=== PATIENT | male | born 1985 | race Caucasian/White ===

== ENCOUNTER 2018-06-20 18:42 | Emergency (ER) | payer MEDICAID, SELFPAY ==
[2018-06-20 18:43] VITALS: BP 135/97; PULSE 78; RESP 18; TEMP 36.8; O2SAT 97; BMI 36.8
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
[2018-06-20] MEDS: Ibuprofen 600 MG Tablet PO (19:20)
--- NOTE | 2018-06-20 19:20 | RAD_ITS ---
STUDY: X-RAY - LEFT KNEE REASON FOR EXAM: Male, 33 years old. Pain TECHNIQUE: 4 view(s) of the knee. COMPARISON: None. FINDINGS: Normal visualized distal femur. Normal visualized proximal tibia and fibula. Normal proximal tibiofibular articulation. Normal medial femorotibial compartment. Normal lateral femorotibial compartment. Normal patellofemoral articulation. The soft tissue structures are unremarkable. RAD/Knee 4 or More Views IMPRESSION: Normal x-ray examination of the knee. Electronically Signed: Paul Shelton DO at 19:51 EDT Tel [phone], Service support ,
[2018-06-20 20:01] VITALS: PULSE 82; RESP 18; O2SAT 100
== END 2018-06-20 20:02 | disposition home or self-care (01) ==
PROVIDERS: Emergency Provider Emergency Medicine; Family Provider Family Medicine Geriatric Medicine; PCP Family Medicine Geriatric Medicine
DX: S80.02XA Contusion of left knee, initial encounter (principal); V10.9XXA Unspecified pedal cyclist injured in collision with pedestrian or animal in traffic accident, initial encounter; Y93.9 Activity, unspecified; Y92.9 Unspecified place or not applicable; Y99.9 Unspecified external cause status; Z72.0 Tobacco use; Z79.899 Other long term (current) drug therapy
CPT/HCPCS: 73564; 99285

== ENCOUNTER 2018-09-23 11:09 | Emergency (ER) | payer MEDICAID, SELFPAY ==
[2018-09-23 11:11] VITALS: BP 157/100; PULSE 82; RESP 17; TEMP 36.6; O2SAT 98; BMI 38.0
[2018-09-23 11:16] VITALS: BP 145/85; PULSE 79; RESP 17; TEMP 36.6; O2SAT 98
--- NOTE | 2018-09-23 11:40 | CT_ITS ---
STUDY: CT ABDOMEN AND PELVIS WITHOUT CONTRAST REASON FOR EXAM: Male, 33 years old. Right flank pain RADIATION DOSAGE (If Supplied By Facility): CTDIvol = ( 22.5 ) mGy, DLP = ( 1163.69 ) mGycm TECHNIQUE: Transaxial images were obtained from the dome of the diaphragm to the symphysis pubis without oral contrast, and without intravenous contrast. Sagittal and coronal images were reconstructed. Individualized dose optimization techniques were used for this CT. COMPARISON: 09/17/2015 FINDINGS: The visualized lung bases are unremarkable. The visualized portions of the heart are within normal limits. Normal liver. Normal gallbladder and extrahepatic biliary system. Normal spleen. Normal pancreas. Normal bilateral adrenal glands. Normal right kidney. Normal left kidney. Normal visualized stomach. Normal small intestine. Normal colon. The appendix is visualized and appears normal. Normal abdominal aorta. Normal inferior vena cava. Normal retroperitoneum. Normal urinary bladder. Normal visualized prostate gland. Normal abdominal wall. Normal osseous structures. CT/Abdomen/Pelvis without Cont IMPRESSION: Normal unenhanced CT of the abdomen and pelvis. Electronically Signed: Louis Cantor DO at 13:13 EST Tel , Service support ,
[2018-09-23 12:02] LABS: Bacteria 0 SEEN /hpf (None Seen); Mucous, Urine 0 SEEN /hpf (<or=2+); Red Blood Cells-Urine 0 SEEN /hpf (0-5); Squamous Epithelial Cells - UA 0 SEEN /hpf (0-5); White Blood Cells 0 SEEN /hpf (0-5)
[2018-09-23 12:05] LABS: Absolute Lymphocyte Count 1.74 X10^3/ul (0.83-4.51); Absolute Neutrophil Count 5.2 X10^3/uL (2.0-7.7); Basophil# 0.05 X10^3/uL; Basophil% 0.6 % (0-1); Eosinophil# 0.06 X10^3/uL; Eosinophils% 0.8 % (0-5); Hemoglobin 16.3 g/dl (13.0-16.5); Lymphocyte # 1.74 X10^3/ul (4.0); Lymphocyte % 22.5 % (19-41); Mean Corp Hgb Conc 34.7 g/gl (32-36); Mean Corpuscular Hgb 30.2 pg (27.0-32.0); Mean Corpuscular Volume 87.2 fL (80-94); Mean Platelet Vol. 9.7 fl (6.2-12.0); Monocyte# 0.69 X10^3/uL; Monocyte% 8.9 % (0-10); Neutrophil # 5.17 X10^3/uL (2.7-7.7); Neutrophil % 66.9 % (47-70); Platelet Count 230 K/mm3 (150-450); RBC Distribution Width CV 13.2 % (11.6-14.6); Red Blood Count 5.39 M/mm3 (4.6-6.2); White Blood Count 7.7 K/mm3 (4.4-11.0)
[2018-09-23 12:07] LABS: Color, Urine Yellow (Yellow); Glucose, Dipstick Normal (Normal); Ketone-Dipstick Negative (Negative); Leukocyte Esterase-Dipstick Negative /ul (Negative); Nitrite-Dipstick Negative (Negative); Occult Blood-Urine Negative /ul (Negative); Protein-Dipstick Negative (Negative); Specific Gravity, Urine 1.005 (1.002-1.030); Urine Bilirubin Dipstick Negative (Negative); Urine Clarity Clear (Clear); Urine Urobilinogen Normal (Normal); Urine pH 6.5 (5.0 - 8.0)
[2018-09-23 12:08] LABS: POSITIVE COUNT NO; POSITIVE DIFFERENTIAL NO; POSITIVE MORPHOLOGY NO
[2018-09-23] MEDS: Ketorolac 30 MG/ML Syringe IV (12:08)
[2018-09-23] MEDS: Ondansetron 4 MG/2 ML Vial IV (12:08)
[2018-09-23] MEDS: Morphine 4 MG/ML Syringe IV (12:08)
[2018-09-23] MEDS: 0.9% Normal Saline 1,000 ML 1000 ML IV (12:08)
--- NOTE | 2018-09-23 12:11 | ED.DCSUM_ITS ---
- ER Visit Summary Date of Service: 09/23/18 Chief Complaint: Right flank pain History of Present Illness: The patient is a 33 M with right flank pain that started yesterday. He describes a mild burning sensation with urination. No blood in the urine. No history of injury or prior kidney stone. Physical Examination: Blood pressure is 157/100, otherwise vitals normal. Patient sitting upright in bed no acute distress. Head neck examination is unremarkable. Heart is regular rate and rhythm. Lung sounds are clear. Abdomen is soft with no focal tenderness on exam. Active bowel sounds are noted throughout. Back examination reveals no reducible tenderness. There is no CVA tenderness. Test Results: CBC and chemistry studies unremarkable. Urinalysis normal. CT flank is normal. Emergency Department Course and Treatment: Patient was given Toradol, morphine, Zofran, and IV fluids. On repeat evaluation is resting comfortably. Test results are discussed with him. He either has a pinched nerve with pain radia ting in that dermatome pattern, or possibly a small noncalcified kidney stone. Regardless patient be treated with anti-inflammatories. Treatment Plan: [] Disposition: Discharge Impression: Right flank pain, uncertain etiology This note was generated with [employer] dictation software. It may contain incorrect words, spelling, and punctuation that were not noted in review of the chart prior to signing ED Disposition - Plan for ED Patient: Chief Complaint: Flank Pain Referrals: Franki Freeman Chi, MD [Primary Care Provider] -
[2018-09-23 12:19] LABS: Anion Gap 6 (5-15); BUN 14 mg/dL (7-18); Calcium,Total 8.8 mg/dL (8.5-10.1); Chloride 108 mmol/L (98-107); Creatinine, Serum 0.82 mg/dL (0.70-1.30); EST Glomerular Filtration Rate 113 mL/min (>60); Est Glom Filt Rate - Afr Amer 137 mL/min (>60); Estimated Creatinine Clearance 133.92 ml/min; Glucose 87 mg/dL (74-106); Potassium 3.7 mmol/L (3.5-5.1); Sodium Level 138 mmol/L (136-145)
--- NOTE | 2018-09-23 13:39 | ED.DEP ---
ED Disposition - Plan for ED Patient: Disposition: Home or Assisted Living Chief Complaint: Flank Pain Instructions: ED Flank Pain Uncertain Cause Prescriptions: Naproxen [Naprosyn] 500 mg PO BID PRN PRN #20 tablet PRN Reason: Pain Referrals: Franki Freeman Chi, MD [Primary Care Provider] - 1 Week if not improving
[2018-09-23 13:52] VITALS: BP 139/88; PULSE 72; RESP 18; O2SAT 96
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
== END 2018-09-23 13:54 | disposition home or self-care (01) ==
PROVIDERS: Emergency Provider Emergency Medicine; Family Provider Family Medicine Geriatric Medicine; PCP Family Medicine Geriatric Medicine
DX: R10.9 Unspecified abdominal pain (principal); R30.0 Dysuria; F32.9 Major depressive disorder, single episode, unspecified; F41.9 Anxiety disorder, unspecified; Z79.899 Other long term (current) drug therapy
CPT/HCPCS: 74176; 80048; 81001; 85025; 96361; 96374; 96375; 99285; J7030; A4216; J2405

== ENCOUNTER → 2018-11-01 14:43 | Outpatient (CLI) | payer MEDICAID, SELFPAY ==
[2018-11-01 17:07] LABS: Absolute Lymphocyte Count 2.04 X10^3/ul (0.83-4.51); Absolute Neutrophil Count 4.8 X10^3/uL (2.0-7.7); Basophil# 0.03 X10^3/uL; Basophil% 0.4 % (0-1); Eosinophil# 0.05 X10^3/uL; Eosinophils% 0.7 % (0-5); Hematocrit 48.5 % (40-54); Hemoglobin 16.3 g/dl (13.0-16.5); Lymphocyte # 2.04 X10^3/ul (4.0); Lymphocyte % 26.8 % (19-41); Mean Corp Hgb Conc 33.6 g/gl (32-36); Mean Corpuscular Hgb 30.1 pg (27.0-32.0); Mean Corpuscular Volume 89.6 fL (80-94); Mean Platelet Vol. 10.6 fl (6.2-12.0); Monocyte# 0.63 X10^3/uL; Monocyte% 8.3 % (0-10); Neutrophil # 4.84 X10^3/uL (2.7-7.7); Neutrophil % 63.4 % (47-70); Platelet Count 224 K/mm3 (150-450); RBC Distribution Width CV 13.4 % (11.6-14.6); RBC Distribution Width SD 44.4 fl (35.1-43.9); Red Blood Count 5.41 M/mm3 (4.6-6.2); White Blood Count 7.6 K/mm3 (4.4-11.0)
[2018-11-01 17:08] LABS: POSITIVE COUNT NO; POSITIVE DIFFERENTIAL NO; POSITIVE MORPHOLOGY NO
[2018-11-01 17:46] LABS: ALB/GLOB Ratio 1.1 RATIO (0.9-2.4); AST(SGOT) 28 U/L (15-37); Alanine Aminotransfer ALT/SGPT 58 U/L (16-61); Albumin, Serum 4.3 g/dL (3.2-5.0); Alkaline Phosphatase 102 U/L (45-117); Anion Gap 9 (5-15); BUN 10 mg/dL (7-18); BUN/Creat Ratio 10.2 RATIO (10-20); Calcium,Total 8.7 mg/dL (8.5-10.1); Chloride 104 mmol/L (98-107); Creatinine, Serum 0.98 mg/dL (0.70-1.30); EST Glomerular Filtration Rate 92 mL/min (>60); Est Glom Filt Rate - Afr Amer 111 mL/min (>60); Glucose 86 mg/dL (74-106); Protein, Total 8.3 g/dL (6.4-8.2); Sodium Level 140 mmol/L (136-145); Thyroid Stim Hormone (TSH) 1.68 uIU/mL (0.358-3.74)
== END ==
PROVIDERS: Family Provider Family Medicine Geriatric Medicine; PCP Family Medicine Geriatric Medicine; Visit Provider Family Medicine Geriatric Medicine
DX: R53.83 Other fatigue (principal)
CPT/HCPCS: 36415; 80053; 84443; 85025

== ENCOUNTER 2018-11-24 16:32 | Emergency (ER) | payer MEDICAID, SELFPAY ==
[2018-11-24 16:33] VITALS: BP 154/88; PULSE 102; RESP 16; TEMP 36.7; O2SAT 96; BMI 39.1
--- NOTE | 2018-11-24 16:43 | ED.VIS.GEN ---
History of Present Illness Chief Complaint: Abd Pain Detail of Chief Complaint: Nausea and vomiting Informant: Patient Onset: Today Context: Sudden Onset Timing: Continuous Quality: Central lower abdominal pain with onset at approximately noon Location: Central lower abdominal Current Severity: Mild Maximum Severity: Moderate Worsened by: Patient believes his symptoms are secondary to the fish he ate at 9 AM Relieved by: Nothing Associated Symptoms: Nausea and vomiting x3 Narrative: Patient is a 33-year-old male who presents with central lower abdominal pain that started approximately noon. He had fish at 9 AM. He states his ate the fish. She is not ill. He has not had any diarrhea. He does not feel bloated and denies distention. He states his emesis is clear and colorless. He denies fever, chills night sweats. He denies cardiac respiratory symptoms. He denies urologic symptoms. He complains of mild dry mouth without thirst or orthostatic symptoms. He denies past surgical history. He denies history of hernia. He denies urologic symptoms and denies testicular pain. Prior similar symptoms: No Recent Illness/Hospitalization: No Past Medical History - Allergies and Home Meds Allergies/Adverse Reactions: Allergies No Known Allergies Allergy (Verified 11/24/18 16:33) Primary Care Physician: Franki Freeman Chi, MD [Primary Care Provider] - Prior records reviewed: Yes Surgical History: no surgical history Lives: Spouse/ Significant Other Smoking Status: Current every day smoker Alcohol: None Review of Systems General: Denies: Chills, Fever, Sweats Eyes: Denies: Visual changes - bilaterally, Diplopia ENT: Denies: Rhinorrhea, Sore throat Cardiovascular: Denies: Chest pain, Palpitations Respiratory: Denies: Dyspnea, Cough, Dyspnea on exertion Gastrointestinal: Reports: Abdominal pain, Nausea, Vomiting. Denies: Diarrhea, Constipation, Melena, Hematochezia Genitourinary: Denies: Dysuria, Hematuria, Frequency Musculoskeletal: Denies: Back pain, Extremity Pain Skin: Denies: Rash, Wounds Neurological: Denies: Headache, Weakness, Numbness Hematologic: Denies: Easy bruising, Easy bleeding Physical Exam Vital Signs/Narrative: Vital Signs Temp Pulse Resp BP Pulse Ox 11/24/18 16:33 98.0 F 102 H 16 154/88 H 96 Inital Vital Signs reviewed: Yes - Blood pressure is slightly elevated and heart rate is 102. General: Well nourished, Well developed, Obese, No Acute Distress Head: Normocephalic, Atraumatic Eyes: Perrl, EOMI ENT: Moist mucous membranes, No rhinorrhea Neck: Supple, Nontender Cardiovascular: Regular rate, Regular rhythm, No murmurs, Normal S1, Normal S2 Respiratory: No distress, CTA bilaterally, Chest nontender Abdomen: Soft, No masses, Tender, Hypoactive bowel sounds, - - Maximal tenderness suprapubic region. Slight tympany to percussion. Bowel sounds are diminished. There is no guarding rebound tenderness.. Negative for: Nondistended, Guarding, Rebound tenderness, Hepatomegaly, Splenomegaly, Mass, Pulsatile mass, Ventral hernia, Inguinal hernia, Umbilical hernia Back: Nontender, Normal Inspection Extremities: Nontender, No edema Skin: Normal color, No rash Neurological: Alert, Oriented x3, Cranial nerves II-XII grossly intact, Normal Strength, Normal Sensation Psychological: Normal affect, Normal Mood Diagnostic/Tx/Re-eval - Medical Decision Making Since spouse ate the same patient has no symptoms would not conclude this is food poisoning. Suspect viral illness. Will treat symptomatically with Zofran and Bentyl. No labs were initially ordered. If there is a change in his exam or symptoms in the next 30-60 minutes will add lab work at that time. Patient was reassessed at 1920. He reports improvement. He has had no further nausea and states the pain is better with medication he received in the department. Therefore, will discharge to home ED Disposition - Plan for ED Patient: Disposition: Home or Assisted Living Diagnosis: Abdominal pain with vomiting, Mild dehydration Instructions: ED Nausea Vomiting Prescriptions: Ondansetron [Zofran Odt] 4 mg PO Q8H PRN PRN #5 tab PRN Reason: Nausea Dicyclomine HCl [Bentyl] 20 mg PO TIDAC #10 cap Referrals: Franki Freeman Chi, MD [Primary Care Provider] - 3-5 Days if not improving
[2018-11-24] MEDS: 0.9% Normal Saline 1,000 ML 250 ML IV (16:53)
[2018-11-24] MEDS: Ondansetron 4 MG/2 ML Vial IV (17:00)
[2018-11-24 17:01] VITALS: BP 147/85; PULSE 99; RESP 18; O2SAT 95
[2018-11-24] MEDS: Dicyclomine 10 MG Capsule 20 MG PO (17:32)
[2018-11-24 19:05] VITALS: BP 133/82; PULSE 78; RESP 94
[2018-11-24 19:48] VITALS: BP 132/82; PULSE 89; RESP 16; O2SAT 98
== END 2018-11-24 19:57 | disposition home or self-care (01) ==
PROVIDERS: Emergency Provider Emergency Medicine; Family Provider Family Medicine Geriatric Medicine; PCP Family Medicine Geriatric Medicine
DX: R10.33 Periumbilical pain (principal); R11.2 Nausea with vomiting, unspecified; E86.0 Dehydration; E66.9 Obesity, unspecified; F17.200 Nicotine dependence, unspecified, uncomplicated
CPT/HCPCS: 96361; 96374; 99285; J7030; A4216; J2405

== ENCOUNTER → 2018-11-28 16:48 | Outpatient (CLI) | payer MEDICAID, SELFPAY ==
[2018-11-24 16:33] VITALS: BMI 39.1
== END ==
PROVIDERS: Family Provider Family Medicine Geriatric Medicine; PCP Family Medicine Geriatric Medicine; Referring Provider Family Medicine Geriatric Medicine; Visit Provider Family Medicine Geriatric Medicine
DX: R50.9 Fever, unspecified (principal)
CPT/HCPCS: 87633

== ENCOUNTER → 2019-07-12 10:49 | Outpatient (CLI) | payer MEDICAID, SELFPAY | PROVIDERS: Family Provider Family Medicine Geriatric Medicine; PCP Family Medicine Geriatric Medicine; Referring Provider Family Medicine Geriatric Medicine; Visit Provider Family Medicine Geriatric Medicine | DX: R68.83 Chills (without fever) (principal) | CPT/HCPCS: 87633 ==

== ENCOUNTER → 2019-10-01 13:39 | Outpatient (CLI) | payer MEDICAID, SELFPAY ==
--- NOTE | 2019-10-01 14:05 | RAD_ITS ---
STUDY: X-RAY - ABDOMEN/PELVIS REASON FOR EXAM: Male, 34 years old. abdomen pain, constipation TECHNIQUE: AP supine and upright views of the abdomen and pelvis. COMPARISON: None. FINDINGS: Normal visualized lung bases. There is an unremarkable bowel gas pattern. There is no demonstrated free abdominal air. The visualized liver, spleen and kidneys are grossly normal in size and morphology. Normal soft tissue structures. There are diffuse degenerative changes of the visualized lumbar spine and bilateral hips. RAD/Abd Inc Decub and/or Erect IMPRESSION: Normal x-ray examination of the abdomen and pelvis. Electronically Signed: Silvia Saenz MD at 0:25 EST , Service support ,
[2019-10-01 17:29] LABS: Absolute Lymphocyte Count 1.88 X10^3/uL (0.83-4.51); Absolute Neutrophil Count 5.4 X10^3/uL (2.0-7.7); Basophil# 0.05 X10^3/uL; Basophil% 0.6 % (0-1); Eosinophil# 0.06 X10^3/uL; Eosinophils% 0.7 % (0-5); Hematocrit 53.1 % (40-54); Hemoglobin 17.6 g/dL (13.0-16.5); Lymphocyte # 1.88 X10^3/ul (4.0); Lymphocyte % 23.1 % (19-41); Mean Corp Hgb Conc 33.1 g/dL (32-36); Mean Corpuscular Hgb 29.8 pg (27.0-32.0); Mean Platelet Vol. 10.5 fl (6.2-12.0); Monocyte# 0.68 X10^3/uL; Monocyte% 8.4 % (0-10); NRBC Flagged by Analyzer 0 % (0-5); Neutrophil # 5.42 X10^3/uL (2.7-7.7); Neutrophil % 66.7 % (47-70); Platelet Count 233 K/mm3 (150-450); RBC Distribution Width CV 12.7 % (11.6-14.6); White Blood Count 8.1 K/mm3 (4.4-11.0)
[2019-10-01 17:47] LABS: ALB/GLOB Ratio 1.2 RATIO (0.9-2.4); AST(SGOT) 26 U/L (15-37); Alanine Aminotransfer ALT/SGPT 51 U/L (16-61); Albumin, Serum 4.6 g/dL (3.2-5.0); Alkaline Phosphatase 106 U/L (45-117); Anion Gap 7 (5-15); BUN 9 mg/dL (7-18); BUN/Creat Ratio 8.4 RATIO (10-20); Calcium,Total 9.2 mg/dL (8.5-10.1); Chloride 105 mmol/L (98-107); Creatinine, Serum 1.07 mg/dL (0.70-1.30); EST Glomerular Filtration Rate 83 mL/min (>60); Est Glom Filt Rate - Afr Amer 100 mL/min (>60); Glucose 83 mg/dL (74-106); Potassium 3.8 mmol/L (3.5-5.1); Protein, Total 8.6 g/dL (6.4-8.2); Sodium Level 137 mmol/L (136-145)
== END ==
PROVIDERS: PCP Family Medicine Geriatric Medicine; Referring Provider Family Medicine Geriatric Medicine; Visit Provider Family Medicine Geriatric Medicine
DX: R10.9 Unspecified abdominal pain (principal)
CPT/HCPCS: 36415; 74019; 80053; 85025

== ENCOUNTER → 2019-11-14 10:20 | Outpatient (CLI) | payer MEDICAID, SELFPAY ==
[2019-11-14 18:10] LABS: Absolute Lymphocyte Count 1.98 X10^3/uL (0.83-4.51); Absolute Neutrophil Count 5.6 X10^3/uL (2.0-7.7); Basophil# 0.06 X10^3/uL; Basophil% 0.7 % (0-1); Eosinophil# 0.08 X10^3/uL; Hematocrit 51.7 % (40-54); Hemoglobin 16.7 g/dL (13.0-16.5); Lymphocyte # 1.98 X10^3/ul (4.0); Lymphocyte % 23.6 % (19-41); Mean Corp Hgb Conc 32.3 g/dL (32-36); Mean Corpuscular Hgb 29.1 pg (27.0-32.0); Mean Corpuscular Volume 90.2 fL (80-94); Mean Platelet Vol. 10.5 fl (6.2-12.0); Monocyte# 0.59 X10^3/uL; NRBC Flagged by Analyzer 0 % (0-5); Neutrophil # 5.62 X10^3/uL (2.7-7.7); Platelet Count 251 K/mm3 (150-450); RBC Distribution Width CV 13.2 % (11.6-14.6); RBC Distribution Width SD 43.6 fl (35.1-43.9); Red Blood Count 5.73 M/mm3 (4.6-6.2); White Blood Count 8.4 K/mm3 (4.4-11.0)
[2019-11-14 18:18] LABS: AST(SGOT) 24 U/L (15-37); Alanine Aminotransfer ALT/SGPT 48 U/L (16-61); Alkaline Phosphatase 102 U/L (45-117); Anion Gap 4 (5-15); BUN 12 mg/dL (7-18); BUN/Creat Ratio 11.8 RATIO (10-20); Calcium,Total 8.6 mg/dL (8.5-10.1); Chloride 106 mmol/L (98-107); Creatinine, Serum 1.02 mg/dL (0.70-1.30); EST Glomerular Filtration Rate 88 mL/min (>60); Est Glom Filt Rate - Afr Amer 106 mL/min (>60); Glucose 100 mg/dL (74-106); Potassium 3.6 mmol/L (3.5-5.1); Sodium Level 138 mmol/L (136-145); Thyroid Stim Hormone (TSH) 2.44 uIU/mL (0.358-3.74)
== END ==
PROVIDERS: PCP Family Medicine Geriatric Medicine; Visit Provider Family Medicine Geriatric Medicine
DX: R53.83 Other fatigue (principal)
CPT/HCPCS: 36415; 80053; 84443; 85025

== ENCOUNTER → 2021-01-14 11:52 | Outpatient (CLI) | payer MEDICAID, SELFPAY ==
[2021-01-14 12:26] LABS: Absolute Lymphocyte Count 2.21 X10^3/uL (0.83-4.51); Absolute Neutrophil Count 5.8 X10^3/uL (2.0-7.7); Basophil# 0.06 X10^3/uL; Basophil% 0.7 % (0-1); Eosinophil# 0.06 X10^3/uL; Eosinophils% 0.7 % (0-5); Hematocrit 53.6 % (40-54); Hemoglobin 17.4 g/dL (13.0-16.5); Lymphocyte # 2.21 X10^3/ul (0.83-4.51); Lymphocyte % 25.3 % (19-41); Mean Corp Hgb Conc 32.5 g/dL (32-36); Mean Corpuscular Hgb 28.8 pg (27.0-32.0); Mean Corpuscular Volume 88.7 fL (80-94); Mean Platelet Vol. 10.1 fl (6.2-12.0); Monocyte# 0.54 X10^3/uL; Monocyte% 6.2 % (0-10); NRBC Flagged by Analyzer 0 % (0-5); Neutrophil # 5.83 X10^3/uL (2.7-7.7); Neutrophil % 66.6 % (47-70); Platelet Count 287 K/mm3 (150-450); RBC Distribution Width SD 42.4 fl (35.1-43.9); Red Blood Count 6.04 M/mm3 (4.6-6.2); White Blood Count 8.7 K/mm3 (4.4-11.0)
[2021-01-14 13:10] LABS: AST(SGOT) 27 U/L (15-37); Alanine Aminotransfer ALT/SGPT 65 U/L (16-61); Albumin, Serum 4.3 g/dL (3.2-5.0); Alkaline Phosphatase 119 U/L (45-117); Anion Gap 6 (5-15); BUN 14 mg/dL (7-18); BUN/Creat Ratio 14.2 RATIO (10-20); Calcium,Total 9.3 mg/dL (8.5-10.1); Chloride 107 mmol/L (98-107); Creatinine, Serum 0.99 mg/dL (0.70-1.30); EST Glomerular Filtration Rate 90 mL/min (>60); Est Glom Filt Rate - Afr Amer 109 mL/min (>60); Globulin 4.3 g/dL (2.2-4.2); Glucose 127 mg/dL (74-106); Potassium 4.1 mmol/L (3.5-5.1); Protein, Total 8.6 g/dL (6.4-8.2); Sodium Level 138 mmol/L (136-145); Thyroid Stim Hormone (TSH) 3.23 uIU/mL (0.358-3.74)
[2021-01-14 17:41] LABS: Hemoglobin A1c 5.1 % (3.8-5.6)
[2021-01-16 12:08] LABS: HEPATITIS B SURFACE AG Negative (Negative); Hepatitis A AB, Total Negative (Negative); Hepatitis A IgM Antibody Negative (Negative); Hepatitis B Core AB IgM Negative (Negative); Hepatitis B Core Ab Total Negative (Negative); Hepatitis C Ab <0.1 s/co ratio (0.0-0.9)
[2021-01-16 13:57] LABS: Hep B Surface Antibodies Non Reactive (.)
== END ==
PROVIDERS: PCP Family Medicine Geriatric Medicine; Visit Provider Family Medicine Geriatric Medicine
DX: I10 Essential (primary) hypertension (principal); R79.9 Abnormal finding of blood chemistry, unspecified
CPT/HCPCS: 36415; 80053; 83036; 84443; 85025; 86704; 86705; 86706; 86708; 86709; 86803; 87340

== ENCOUNTER → 2021-01-23 09:03 | Outpatient (CLI) | payer MEDICAID, SELFPAY ==
--- NOTE | 2021-01-23 09:12 | US_ITS ---
STUDY: ABDOMINAL ULTRASOUND - RIGHT UPPER QUADRANT REASON FOR VISIT: Male, 35 years old abnormal LFTs TECHNIQUE: Ultrasound evaluation of the right upper quadrant was performed with real-time and static lyons-scale imaging. TECHNICAL QUALITY: Adequate. COMPARISON: None. FINDINGS: Liver: The liver measures 17.3 cm. There is increased echogenicity consistent with fatty infiltration. The bile ducts are within normal limits. There is hepatic color flow. The direction of portal flow is hepatopetal. There is no demonstrated mass lesion. Gallbladder: Normal distended gallbladder. The gallbladder wall measures 3 mm. There is a negative sonographic Montgomery''s sign. There is no pericholecystic fluid. There are no gallstones. Common Bile Duct (C.B.D.): The common bile duct measures 4 mm. Pancreas: Normal size of the head, body and tail of the pancreas. There is increased echogenicity of the pancreas. There is no demonstrated pancreatic mass or cyst. Right Kidney: Normal size of the right kidney. The right kidney measures 12.9 x 5.8 x 6.3 cm. Normal renal cortex. The right cortex measures 1.6 cm. There is no demonstrated renal mass or cyst. There is no right hydronephrosis. US/Abdomen Limited IMPRESSION: Diffuse fatty infiltration of the liver, no discrete lesion Nonspecific echogenic pancreas Electronically Signed: Dionte Rudd MD at 10:47 EDT , Service support ,
== END ==
PROVIDERS: PCP Family Medicine Geriatric Medicine; Referring Provider Family Medicine Geriatric Medicine; Visit Provider Family Medicine Geriatric Medicine
DX: R74.8 Abnormal levels of other serum enzymes (principal)
CPT/HCPCS: 76705

== ENCOUNTER 2021-02-09 15:19 | Emergency (ER) | payer MEDICAID, SELFPAY ==
[2021-02-09 15:20] VITALS: BP 167/94; PULSE 98; RESP 15; TEMP 36.7; O2SAT 97; BMI 41.3
--- NOTE | 2021-02-09 15:32 | EX.ED.UPPERE ---
HPI History of Present Illness Chief Complaint: Upper Extremity Injury Informant: patient and parent Onset/Context/Timing Onset: Hours Context: Sudden Onset Timing: Continuous Quality of Pain: Throbbing Current Severity: Mild Maximum Severity: Moderate Worsened by: Use of right hand Relieved by: Nothing Associated Symptoms Associated Symptoms: Negative for Parasthesia and Weakness Narrative Narrative: Patient is a 35-year-old wyfgg-[id number]-uzgylbkp male who hit the wall anger. His last tetanus shot was greater than 10 years ago. He denies paresthesia, anesthesia motor weakness. He reports pain with use of his hand. He has no other complaints. Tetanus Immunization: >10 years Prior similar symptoms: No Recent Illness/Hospitalization: No PFSH PFS Medical History (Updated 02/09/21 @ 16:[address] Carlos Boland MD) Depression Home Medications citalopram 10 mg PO DAILY 02/09/21 [History Last Taken Unknown] primidone 150 mg PO QHS 02/09/21 [History Last Taken Unknown] Allergy/AdvReac Type Severity Reaction Status Date / Time No Known Allergies Allergy Verified 02/09/21 15:21 Social History (Updated 02/09/21 @ 15:[address] Carlos Boland MD) household members: family Smoking Status: Current every day smoker tobacco type: cigarettes substance use type: does not use ROS ROS ED Musculoskeletal Musculoskeletal: Denies back pain, myalgias or neck pain Integumentary Reports Abrasions; Denies abscess or rash Neurologic Neurologic: Denies paresthesias or weakness Hematologic/Lymphatic Hematologic/Lymphatic: Denies easy bleeding or easy bruising EXAM Physical Exam Const Vital Signs: 02/09/21 15:20 Temperature 98.1 F Temperature Source Temporal Pulse Rate 98 Respiratory Rate 15 Blood Pressure 167/94 H Blood Pressure Mean 118 Pulse Ox 97 Oxygen Delivery Method Room Air Positive well nourished, well developed and obese General Appearance ED: well developed and NAD Nutritional Appearance: obese HEENT normocephalic and atraumatic Eyes PERRL and EOMs intact bilaterally Neck full ROM and supple Chest Wall inspection of chest normal Resp normal respiratory effort Cardio regular rate and regular rhythm Extremity Negative for normal to inspection Extremity Narrative: There is abrasions noted over the second third and fourth MCP joint. There is no rotational malalignment. There is pain palpation over the proximal phalanx of the index long and ring finger as well as over the second, third and fourth metacarpal. Right Upper Extremity: hand and digits Neuro oriented x3 and CN's II-XII intact bilaterally Neuro Narrative: Median, radial and ulnar function intact. Sensorium / Orientation: alert Motor Exam: strength 5/5 throughout Psych mental status grossly normal Skin Lesions: no lesions Rashes: no rashes Trauma: abrasion MDM MDM MDM Narrative Medical decision making narrative: Extremities obtained to rule out fracture and tetanus was updated. Radiography Diagnostic Testing: Three-view x-ray of the right hand is negative for fracture, subluxation, dislocation or foreign body. Discharge Plan Triage Chief Complaint: Upper Extremity Injury ED Provider: Carlos Boland Dx/Rx/DC Orders Clinical Impression: Contusion of right hand, initial encounter Instructions: ED Abrasion, ED Hand Contusion Prescriptions: No Action primidone 50 mg tablet 150 mg PO QHS RF: 0 citalopram 10 mg tablet 10 mg PO DAILY RF: 0 Primary Care Provider: Franki Freeman Chi Referrals: Franki Freeman Chi, MD [Primary Care Provider] - 1 Week Disposition Disposition: Home, self care
--- NOTE | 2021-02-09 15:40 | RAD_ITS ---
HISTORY: Trauma, injury, Pain EXAMINATION/TECHNIQUE: XR Hand Min 3 Views: COMPARISON: None FINDINGS: BONES/JOINTS: No acute fracture or dislocation. Preservation of the joint spaces. No sclerotic or destructive changes observed. SOFT TISSUES: No soft tissue swelling or gas. No radiopaque foreign body. RAD/Hand Min 3 Views IMPRESSION: No acute bony abnormality. at 1604 Reported and signed by: Galen Heath MD Electronically Signed: Galen Heath MD at 16:03 EDT Tel , Service support ,
[2021-02-09] MEDS: Diphth,Pertuss(Acell),Tet Vac 0.5 ML Vial IM (16:05)
[2021-02-09 16:32] VITALS: RESP 18
--- NOTE | 2021-02-09 16:33 | ED.RN ---
PT OBSERVED FOR SHOT TIME GREATER THAN 15 MINUTES NO REACTION NOTED BY THIS RN. PT D/C.
== END 2021-02-09 16:38 | disposition home or self-care (01) ==
PROVIDERS: Emergency Provider Emergency Medicine; PCP Family Medicine Geriatric Medicine
DX: S60.221A Contusion of right hand, initial encounter (principal); E66.9 Obesity, unspecified; F17.210 Nicotine dependence, cigarettes, uncomplicated; F32.9 Major depressive disorder, single episode, unspecified; W22.01XA Walked into wall, initial encounter; Z79.899 Other long term (current) drug therapy
CPT/HCPCS: 73130; 90471; 90715; 99282

== ENCOUNTER 2021-02-21 12:52 | Emergency (ER) | payer MEDICAID, SELFPAY ==
[2021-02-21 12:55] VITALS: BP 168/101; PULSE 98; RESP 21; TEMP 37.1; O2SAT 97; BMI 42.1
--- NOTE | 2021-02-21 12:58 | EKG12_ITS ---
Test Reason : SYNCOPE Blood Pressure : / mmHG Vent. Rate : 097 BPM Atrial Rate : 097 BPM P-R Int : 150 ms QRS Dur : 092 ms QT Int : 328 ms P-R-T Axes : 060 -23 033 degrees QTc Int : 416 ms Normal sinus rhythm Normal ECG Confirmed by CHRISTIANO ORTEGA, CHAVA ([id number]), industrial editor TREVOR PRIETO ([id number]) on 02/23/2021 10:41:22 A M Referred By: DOMINIC Confirmed By:JEAN-PAUL ALVARADO MD
[2021-02-21 13:08] VITALS: BP 168/101; PULSE 105; RESP 18; O2SAT 97
--- NOTE | 2021-02-21 13:09 | EDS_ITS ---
HPI History of Present Illness Chief Complaint: Syncope Narrative Narrative: Patient presents complaining of GI upset after initiating Depakote therapy for anger management, he has been on Depakote 500 mg twice daily for 3 days to start medication he feels if he has stomach upset he took a Depakote tablet shortly thereafter he feels as if he has to vomit, today took a Depakote tablet and then 1 hour later vomited felt as if he passed out he was brought to the hospital, he has no history of VT PE or DVT he has no abdominal pain bowel bladder habits unremarkable he has no complaints otherwise he has no history of syncope heart disease he has behavioral health disorder and fatty liver that stable, he was given a 90-day supply in 2 separate bottles he states he is taking only the amount prescribed he is not taking extra he has no complaints at this time [facility] Medical History Depression Fatty liver Smoker Home Medications citalopram 10 mg PO DAILY 02/09/21 [History Last Taken Unknown] primidone 150 mg PO QHS 02/09/21 [History Last Taken Unknown] Allergy/AdvReac Type Severity Reaction Status Date / Time No Known Allergies Allergy Verified 02/09/21 15:21 Social History (Updated 02/09/21 @ 15:[address] Carlos Boland MD) household members: family Smoking Status: Current every day smoker tobacco type: cigarettes substance use type: does not use ROS ROS ED ROS Narrative Vomiting with Depakote therapy initiation near syncope Constitutional Constitutional ED: Reports subjective, sweats and other; Denies chills, fever(s) or weight loss Eyes Eyes: Denies blurry vision or change in vision ENT ENT ED: Denies ear pain Cardiovascular Cardiovascular: Denies chest pain or palpitations Respiratory/Chest Respiratory/Chest: Denies dyspnea Gastrointestinal Gastrointestinal: Denies abdominal pain, nausea or vomiting Genitourinary Genitourinary ED: Denies dysuria or hematuria Musculoskeletal Musculoskeletal: Denies arthralgias or myalgias Integumentary Reports rash; Denies abscess Neurologic Neurologic: Denies weakness Psychiatric Psychiatric: Denies anxiety or depression Endocrine Endocrinology: Denies polydipsia or polyuria Allergic/Immunologic Allergic/Immunologic ED: Denies urticaria EXAM Physical Exam Narrative Exam Narrative: His vital signs are unremarkable he is awake and alert he has no complaints head neck chest unremarkable abdomen soft nontender neurologically normal NIH 0 Const Vital Signs: 02/21/21 12:55 02/21/21 13:08 Temperature 98.8 F Temperature Source Oral Pulse Rate 98 105 H Respiratory Rate 21 H 18 Respiratory Effort Normal Respiratory Pattern Normal Blood Pressure 168/101 H 168/101 H Blood Pressure Mean 123 123 Pulse Ox 97 97 Oxygen Delivery Method Room Air Room Air Positive well developed General Appearance ED: well developed HEENT Reports normocephalic Negative for trauma Eyes EOMs intact bilaterally Neck supple Chest Wall inspection of chest normal Resp normal respiratory effort Cardio regular rate GI non-tender and non-distended Back/Spine Back/Spine Narrative: unremarkable Extremity normal to inspection Neuro oriented x3 and CN's II-XII intact bilaterally Sensorium / Orientation: alert Psych mental status grossly normal Skin no rashes or lesions noted MDM MDM MDM Narrative Medical decision making narrative: His EKG shows a sinus rhythm rate of 97 no acute injury nothing acute clinically looks well his family is in the room with him they confirm that since starting the Depakote he has had a sense of nausea and vomiting he is not taking extra Depakote given all the above 80 screen evaluation observation Patient's ED screening evaluation is generally unremarkable see all those reports, at this time given that this appears to be persistent stated by new onset Depakote for anger management causing him to have stomach upset will have him stop that medication seen a bland diet follow-up with his outpatient providers there is nothing to suggest seizure stroke VT rating life-threatening discussed with the patient discussed inpatient versus outpatient management he is comfortable with discharge home and will return for change in symptoms Home stable Final impression GI upset related to Depakote use, near syncope Lab Data Labs: Laboratory Results - last 24 hr 02/21/21 02/21/21 02/21/21 13:10 13:10 13:10 WBC 8.7 RBC 5.96 Hgb 17.7 H Hct 52.8 MCV 88.6 MCH 29.7 MCHC 33.5 RDW Std Deviation 41.8 RDW Coeff of Eleonora 12.8 Plt Count 294 MPV 9.6 Immature Gran % (Auto) 0.600 Neut % (Auto) 70.8 H Lymph % (Auto) 19.8 [place] % (Auto) 6.9 Eos % (Auto) 1.1 Baso % (Auto) 0.8 Absolute Neuts (auto) 6.2 Absolute Lymphs (auto) 1.72 Nucleated RBC % 0 Sodium 137 Potassium 3.8 Chloride 104 Carbon Dioxide 24.0 Anion Gap 9 BUN 13 Creatinine 1.12 Estim Creat Clear Calc 96.18 Est GFR (MDRD) Af Amer 94 Est GFR (MDRD) Non-Af 78 BUN/Creatinine Ratio 11.6 Glucose 120 H Calcium 9.1 Total Bilirubin 0.40 AST 22 ALT 56 Alkaline Phosphatase 125 H Troponin I < 0.015 B-Natriuretic Peptide 2.3 Total Protein 8.4 H Albumin 4.2 Globulin 4.2 Albumin/Globulin Ratio 1.0 Lipase 61 L Discharge Plan Triage Chief Complaint: Syncope ED Provider: Luis Hanley Dx/Rx/DC Orders Clinical Impression: Near syncope Instructions: ED Fainting, Vagal Reaction, ED Fainting, Uncertain Cause, ED Dizziness Syncope Fainting W Pre Prescriptions: No Action primidone 50 mg tablet 150 mg PO QHS RF: 0 citalopram 10 mg tablet 10 mg PO DAILY RF: 0 Primary Care Provider: Franki Freeman Chi Referrals: Franki Freeman Chi, MD [Primary Care Provider] - Activity Restrictions/Additional Instructions: Stop the Depakote standard bland diet return for change in symptoms
[2021-02-21 13:17] LABS: Absolute Lymphocyte Count 1.72 X10^3/uL (0.83-4.51); Absolute Neutrophil Count 6.2 X10^3/uL (2.0-7.7); Basophil# 0.07 X10^3/uL; Basophil% 0.8 % (0-1); Eosinophils% 1.1 % (0-5); Hematocrit 52.8 % (40-54); Hemoglobin 17.7 g/dL (13.0-16.5); Lymphocyte # 1.72 X10^3/ul (0.83-4.51); Lymphocyte % 19.8 % (19-41); Mean Corp Hgb Conc 33.5 g/dL (32-36); Mean Corpuscular Hgb 29.7 pg (27.0-32.0); Mean Corpuscular Volume 88.6 fL (80-94); Mean Platelet Vol. 9.6 fl (6.2-12.0); Monocyte% 6.9 % (0-10); NRBC Flagged by Analyzer 0 % (0-5); Neutrophil # 6.16 X10^3/uL (2.7-7.7); Neutrophil % 70.8 % (47-70); Platelet Count 294 K/mm3 (150-450); RBC Distribution Width CV 12.8 % (11.6-14.6); RBC Distribution Width SD 41.8 fl (35.1-43.9); Red Blood Count 5.96 M/mm3 (4.6-6.2); White Blood Count 8.7 K/mm3 (4.4-11.0)
[2021-02-21 13:35] LABS: AST(SGOT) 22 U/L (15-37); Alanine Aminotransfer ALT/SGPT 56 U/L (16-61); Albumin, Serum 4.2 g/dL (3.2-5.0); Alkaline Phosphatase 125 U/L (45-117); Anion Gap 9 (5-15); BUN 13 mg/dL (7-18); BUN/Creat Ratio 11.6 RATIO (10-20); Calcium,Total 9.1 mg/dL (8.5-10.1); Chloride 104 mmol/L (98-107); Creatinine, Serum 1.12 mg/dL (0.70-1.30); EST Glomerular Filtration Rate 78 mL/min (>60); Est Glom Filt Rate - Afr Amer 94 mL/min (>60); Estimated Creatinine Clearance 96.18 ml/min; Globulin 4.2 g/dL (2.2-4.2); Glucose 120 mg/dL (74-106); Lipase 61 U/L (73-393); Potassium 3.8 mmol/L (3.5-5.1); Protein, Total 8.4 g/dL (6.4-8.2); Sodium Level 137 mmol/L (136-145)
[2021-02-21 13:36] LABS: BNP,B-Type NATRIURETIC PEPTIDE 2.3 pg/mL (0-100)
[2021-02-21 14:16] LABS: Valproic Acid (Depakene) Level 54 ug/mL (50-100)
[2021-02-21 14:30] VITALS: BP 137/88; PULSE 77; RESP 19; O2SAT 96
== END 2021-02-21 14:31 | disposition home or self-care (01) ==
PROVIDERS: Emergency Provider Emergency Medicine; PCP Family Medicine Geriatric Medicine
DX: R55 Syncope and collapse (principal); F17.210 Nicotine dependence, cigarettes, uncomplicated
CPT/HCPCS: 80053; 80164; 83690; 83880; 84484; 85025; 93005; 99285; J7040; A4216

== ENCOUNTER → 2021-03-10 08:26 | Outpatient (CLI) | payer MEDICAID, SELFPAY ==
[2021-02-21 12:55] VITALS: BMI 42.1
--- NOTE | 2021-03-10 08:32 | US_ITS ---
STUDY: ABDOMINAL ULTRASOUND - ELASTOGRAPHY REASON FOR VISIT: Male, 36 years old. Fatty infiltration of the liver. TECHNIQUE: Liver stiffness measurements were obtained on a [employer] RS 85 ultrasound machine using a CA 1-7 probe following the SRU guidelines. 3 measurements were obtained using a 2-D-SWE method. The IQR/M was 17% suggesting a quality data set. TECHNICAL QUALITY: Adequate. COMPARISON: Comparison is made with prior examination dated 01/24/2020. FINDINGS: Liver: There is fatty infiltration of the liver. Median liver stiffness measured kPa. US/Elastography Parenchyma/Organ IMPRESSION: Liver stiffness measures 6.3 kPa compatible with F2 Metavir score. Electronically Signed: Roge Alvarado MD at 11:07 EDT , Service support ,
== END ==
PROVIDERS: PCP Family Medicine Geriatric Medicine; Referring Provider Family Medicine Geriatric Medicine; Visit Provider Family Medicine Geriatric Medicine
DX: K76.0 Fatty (change of) liver, not elsewhere classified (principal)
CPT/HCPCS: 76981

== ENCOUNTER 2021-06-10 08:36 | Emergency (ER) | payer MEDICAID, SELFPAY ==
[2021-06-10 08:39] VITALS: BP 139/93; PULSE 113; RESP 14; TEMP 37.1; O2SAT 97; BMI 31.3
--- NOTE | 2021-06-10 09:10 | EDS_ITS ---
HPI History of Present Illness Chief Complaint: Laceration Informant: patient Occured/Mechanism Comment: Cut with broken mirror Onset/Context/Timing Current Severity: Mild Maximum Severity: Mild Narrative Narrative: Patient presents with laceration to the right lower vaz. Patient states a mirror broke and cut his leg. Last tetanus update was a couple months ago. [facility] History Depression Fatty liver Smoker Home Medications citalopram 10 mg PO DAILY 02/09/21 [History Last Taken Unknown] primidone 150 mg PO QHS 02/09/21 [History Last Taken Unknown] Allergy/AdvReac Type Severity Reaction Status Date / Time No Known Allergies Allergy Verified 06/10/21 08:38 Social History household members: family Smoking Status: Current every day smoker tobacco type: cigarettes substance use type: does not use ROS ROS ED Constitutional Constitutional ED: Denies chills or fever(s) Eyes Eyes: Denies change in vision ENT ENT ED: Denies sore throat Cardiovascular Cardiovascular: Denies chest pain Respiratory/Chest Respiratory/Chest: Denies cough or dyspnea Gastrointestinal Gastrointestinal: Denies abdominal pain, diarrhea, nausea or vomiting Musculoskeletal Musculoskeletal: Denies back pain Integumentary Reports other Details: Right lower leg laceration ; Denies rash Neurologic Neurologic: Denies headache(s) or weakness Psychiatric Psychiatric: Denies anxiety or depression Allergic/Immunologic Allergic/Immunologic ED: Denies urticaria EXAM Physical Exam Const Vital Signs: 06/10/21 08:39 Temperature 98.8 F Temperature Source Temporal Pulse Rate 113 H Respiratory Rate 14 Blood Pressure 139/93 H Blood Pressure Mean 108 Pulse Ox 97 Oxygen Delivery Method Room Air Positive well nourished and well developed General Appearance ED: well developed HEENT Reports normocephalic and head/scalp atraumatic Eyes PERRL and EOMs intact bilaterally Neck supple Chest Wall inspection of chest normal and palpation of chest normal Resp normal respiratory effort and clear to auscultation bilaterally Cardio regular rate and regular rhythm GI normal to inspection, nondistended, normoactive bowel sounds Palpation: soft Extremity Extremity Narrative: 6 cm laceration to the right anterior lateral lower vaz. Bleeding well controlled. Strong distal pulses with full range of motion. Neuro oriented x3 and no sensory deficits noted Sensorium / Orientation: alert Motor Exam: strength 5/5 throughout Psych mental status grossly normal Skin Skin Narrative: Laceration as above. MDM MDM Treatment and Re-Evaluation Comments:: Wound is anesthetized and sutured. Please see procedure note. Wound is cleansed and dressed and wound care instructions are provided. Patient is to have sutures out in 10 days. Procedures Lacerations Right lower extremity laceration: Length: 2.36 in Depth: Sub Q Shape: Linear Prep: Shure-Clens Laceration repair: Irrigated, Lidocaine (5 cc 1% lidocaine) and Local Number of Sutures/Emilia: 7 Suture Information: Vicryl, Simple and 4-0 Discharge Plan Triage Chief Complaint: Laceration ED Provider: Lesly Jones Dx/Rx/DC Orders Clinical Impression: Laceration of right lower leg Instructions: ED Laceration: All Closures Prescriptions: No Action primidone 50 mg tablet 150 mg PO QHS RF: 0 citalopram 10 mg tablet 10 mg PO DAILY RF: 0 Primary Care Provider: Franki Freeman Chi Referrals: rFanki Freeman Chi, MD [Primary Care Provider] - 10-14 Days suture removal Disposition Disposition: Home, Self Care
== END 2021-06-10 09:50 | disposition home or self-care (01) ==
PROVIDERS: Emergency Provider Emergency Medicine; PCP Family Medicine Geriatric Medicine
DX: S81.811A Laceration without foreign body, right lower leg, initial encounter (principal); W25.XXXA Contact with sharp glass, initial encounter; Y93.9 Activity, unspecified; Y92.9 Unspecified place or not applicable; Y99.9 Unspecified external cause status; F32.A Depression, unspecified; F17.210 Nicotine dependence, cigarettes, uncomplicated; Z79.899 Other long term (current) drug therapy
CPT/HCPCS: 12002; 99285

== ENCOUNTER 2022-08-11 14:31 | Emergency (ER) | payer MEDICAID, SELFPAY ==
[2022-08-11 14:32] VITALS: BP 145/88; PULSE 81; RESP 18; TEMP 36.6; O2SAT 100; BMI 29.2
--- NOTE | 2022-08-11 14:34 | ED.RN ---
UPON ARRIVAL, PT TOLD THIS RN THAT HE WAS HAVING PAIN IN HIS RIGHT SHOULDER AND WAS HOLDING IT. BY THE END OF TRIAGE, PT STATES IT IS HIS LEFT SHOULDER AND NOW IS HOLDING HIS LEFT SHOULDER. PT STATING IT IS HIS LEFT SHOULDER AND GIRLFRIEND WROTE IT WRONG ON TRIAGE PAPER
--- NOTE | 2022-08-11 16:29 | EX.ED.UPPERE ---
HPI History of Present Illness Chief Complaint: Upper Extremity Injury Informant: patient Narrative Narrative: [id number] male presents for evaluation of left shoulder pain worsened today. 2 weeks ago mechanical fall while walking [place] Doing fine yesterday states he felt to popping sensations with movement. Took Tylenol this morning. Denied any deformities at that time or any subluxations. Pain worse with overhead movements. No history of similar. History of fatty liver couple years ago. Denies history of gastric ulcers or kidney injury. Prior similar symptoms: No PFSH PFSH Medical History Depression Fatty liver Smoker Home Medications citalopram 10 mg tablet 10 mg PO DAILY 02/09/21 [History Last Taken Unknown] primidone 50 mg tablet 150 mg PO QHS 02/09/21 [History Last Taken Unknown] ibuprofen 600 mg tablet 600 mg PO 4X/DAY PRN Pain Or Fever #20 tabs 08/11/22 [Rx Last Taken Unknown] Allergy/AdvReac Type Severity Reaction Status Date / Time No Known Allergies Allergy Verified 08/11/22 15:52 Social History household members: family Smoking Status: Current every day smoker tobacco type: cigarettes substance use type: does not use ROS ROS ED Constitutional Constitutional ED: Denies chills, fever(s) or sweats Eyes Eyes: Denies change in vision ENT ENT ED: Denies dysphagia or sore throat Cardiovascular Cardiovascular: Denies chest pain, leg edema, palpitations or racing heartbeat Respiratory/Chest Respiratory/Chest: Denies cough, dyspnea or dyspnea on exertion Gastrointestinal Gastrointestinal: Denies abdominal pain, diarrhea, nausea or vomiting Genitourinary Genitourinary ED: Denies dysuria, hematuria or urinary frequency Musculoskeletal Musculoskeletal: Reports extremity pain and other Details: Left shoulder pain ; Denies back pain or neck pain Integumentary Denies rash or wounds Neurologic Neurologic: Denies headache(s), paresthesias or weakness EXAM Physical Exam Const Vital Signs: 08/11/22 14:32 Temperature 98 F Temperature Source Temporal Pulse Rate 81 Respiratory Rate 18 Blood Pressure 145/88 H Blood Pressure Mean 107 Pulse Ox 100 Oxygen Delivery Method Room Air Positive well nourished and well developed General Appearance ED: well developed and NAD HEENT Reports moist mucous membranes normocephalic and atraumatic Eyes PERRL, EOMs intact bilaterally and conjunctivae normal General Eye ED: Yes normal appearance of both eyes Neck no lymphadenopathy and supple General: Negative for tenderness Chest Wall Chest: Negative for tenderness Resp normal respiratory effort and normal air movement Effort and Inspection: symmetric chest movement; Negative for respiratory distress Cardio regular rate, regular rhythm and no murmurs Peripheral Pulses: pulses 2+ throughout GI normal to inspection, nondistended, normoactive bowel sounds and non-tender Palpation: Negative for guarding or rebound tenderness present Back/Spine no CVA tenderness and no thoracic nor lumbar tenderness Extremity Extremity Narrative: Left upper extremity: No clavicular pain. No deformities of the shoulder. Positive empty can. Positive pain with external rotation against resistance. No elbow pain. Skin intact. Neuro vas intact distally. General Extremety ED: Negative for edema or tenderness General Extremity: Negative for edema Neuro oriented x3 and no sensory deficits noted Sensorium / Orientation: awake and alert Skin no rashes or lesions noted and no wounds MDM MDM MDM Narrative Medical decision making narrative: Patient exam concerns for rotator cuff strain, history no clear subluxations or dislocations. X-ray 4 views left shoulder reviewed by myself and read by radiology shows no acute process. He started on ibuprofen. He will continue this. Discussed not using sling to avoid frozen shoulders. Discussed continued movement with minimal overhead use. He is given follow-up with orthopedics as an outpatient. All questions were answered. Discharge Plan Triage Chief Complaint: Upper Extremity Injury ED Provider: Nakul Dyer Dx/Rx/DC Orders Clinical Impression: Left shoulder strain, Rotator cuff (capsule) sprain Instructions: ED Shoulder Sprain Prescriptions: New ibuprofen 600 mg tablet 600 mg PO 4X/DAY PRN (Reason: Pain Or Fever) Qty: 20 0RF No Action primidone 50 mg tablet 150 mg PO QHS Label Comments: TAKE 3 TABLETS BY MOUTH ONCE DAILY AT BEDTIME citalopram 10 mg tablet 10 mg PO DAILY Label Comments: TAKE 1 TABLET BY MOUTH ONCE DAILY Primary Care Provider: Franki Freeman Chi Referrals: Tono Travis DO [Med Staff - Active Staff] - 1 Week if not improving Franki Freeman Chi, MD [Primary Care Provider] - Activity Restrictions/Additional Instructions: X-ray negative. Exam concerns for rotator cuff strain and injury. Take medication as prescribed. Follow-up as an outpatient. Disposition Disposition: Home, Self Care Discharge Date/Time: 08/11/22 17:43
[2022-08-11] MEDS: Ibuprofen 600 MG Tablet PO (16:33)
--- NOTE | 2022-08-11 17:04 | RAD_ITS ---
STUDY: X-RAY - LEFT SHOULDER REASON FOR EXAM: Male, 37 years old. Left shoulder pain TECHNIQUE: 4 view(s) of the shoulder. COMPARISON: None. FINDINGS: Normal glenohumeral articulation. Normal acromioclavicular joint. Normal acromion. There is no demonstrated inferior acromial spur. Normal humeral head and visualized proximal humerus. The soft tissue structures are unremarkable. There is no demonstrated fracture. Normal visualized pulmonary apex. RAD/Shoulder min 2 Views IMPRESSION: Normal x-ray examination of the shoulder. Electronically Signed: Dinh Lazo MD at 17:18 EST ,
[2022-08-11 17:39] VITALS: RESP 18
== END 2022-08-11 17:43 | disposition home or self-care (01) ==
PROVIDERS: Emergency Provider Emergency Medicine; PCP Family Medicine Geriatric Medicine; Visit Provider Emergency Medicine
DX: S43.422A Sprain of left rotator cuff capsule, initial encounter (principal); F17.210 Nicotine dependence, cigarettes, uncomplicated; W01.198A Fall on same level from slipping, tripping and stumbling with subsequent striking against other object, initial encounter
CPT/HCPCS: 73030; 99283

== ENCOUNTER → 2022-11-03 | Outpatient (CLI) | payer MEDICAID, SELFPAY ==
[2022-11-03 13:30] LABS: ALB/GLOB Ratio 1.2 RATIO (0.9-2.4); AST(SGOT) 20 U/L (15-37); Alanine Aminotransfer ALT/SGPT 30 U/L (16-61); Albumin, Serum 4.3 g/dL (3.2-5.0); Alkaline Phosphatase 105 U/L (45-117); Anion Gap 7 (5-15); BUN 13 mg/dL (7-18); BUN/Creat Ratio 12.7 RATIO (10-20); Calcium,Total 9.5 mg/dL (8.5-10.1); Chloride 107 mmol/L (98-107); Creatinine, Serum 1.02 mg/dL (0.70-1.30); EST Glomerular Filtration Rate 86 mL/min (>60); Est Glom Filt Rate - Afr Amer 104 mL/min (>60); Globulin 3.7 g/dL (2.2-4.2); Glucose 83 mg/dL (74-106); Potassium 4.1 mmol/L (3.5-5.1); Sodium Level 142 mmol/L (136-145); Thyroid Stim Hormone (TSH) 1.67 uIU/mL (0.358-3.74)
[2022-11-03 16:23] LABS: Absolute Lymphocyte Count 1.93 X10^3/uL (0.83-4.51); Absolute Neutrophil Count 5.2 X10^3/uL (2.0-7.7); Basophil# 0.05 X10^3/uL; Basophil% 0.6 % (0-1); Eosinophil# 0.08 X10^3/uL; Hematocrit 51.9 % (40-54); Hemoglobin 17.7 g/dL (13.0-16.5); Lymphocyte # 1.93 X10^3/ul (0.83-4.51); Lymphocyte % 23.7 % (19-41); Mean Corp Hgb Conc 34.1 g/dL (32-36); Mean Corpuscular Hgb 30.9 pg (27.0-32.0); Mean Corpuscular Volume 90.6 fL (80-94); Monocyte% 9.8 % (0-10); NRBC Flagged by Analyzer 0.9 % (0-5); Neutrophil # 5.21 X10^3/uL (2.7-7.7); Neutrophil % 64.2 % (47-70); Platelet Count 235 K/mm3 (150-450); RBC Distribution Width SD 43.1 fl (35.1-43.9); Red Blood Count 5.73 M/mm3 (4.6-6.2); White Blood Count 8.1 K/mm3 (4.4-11.0)
== END | disposition home or self-care (01) ==
LOC: POLAB3 10:31
PROVIDERS: PCP Family Medicine Geriatric Medicine; Visit Provider Family Medicine Geriatric Medicine
DX: R53.83 Other fatigue (principal)
CPT/HCPCS: 36415; 80053; 84443; 85025

== ENCOUNTER → 2023-05-04 | Outpatient (CLI) | payer MEDICAID, SELFPAY ==
[2023-05-04 17:42] LABS: Absolute Lymphocyte Count 2.37 X10^3/uL (0.83-4.51); Absolute Neutrophil Count 6.9 X10^3/uL (2.0-7.7); Basophil# 0.07 X10^3/uL; Basophil% 0.7 % (0-1); Eosinophil# 0.05 X10^3/uL; Eosinophils% 0.5 % (0-5); Hematocrit 47.3 % (40-54); Hemoglobin 15.7 g/dL (13.0-16.5); Lymphocyte # 2.37 X10^3/ul (0.83-4.51); Lymphocyte % 23.1 % (19-41); Mean Corp Hgb Conc 33.2 g/dL (32-36); Mean Corpuscular Hgb 30.4 pg (27.0-32.0); Mean Corpuscular Volume 91.5 fL (80-94); Mean Platelet Vol. 10.2 fl (6.2-12.0); Monocyte# 0.78 X10^3/uL; Monocyte% 7.6 % (0-10); NRBC Flagged by Analyzer 0 % (0-5); Neutrophil # 6.93 X10^3/uL (2.7-7.7); Neutrophil % 67.7 % (47-70); Platelet Count 232 K/mm3 (150-450); RBC Distribution Width CV 12.9 % (11.6-14.6); RBC Distribution Width SD 43.5 fl (35.1-43.9); Red Blood Count 5.17 M/mm3 (4.6-6.2); White Blood Count 10.2 K/mm3 (4.4-11.0)
[2023-05-04 18:32] LABS: ALB/GLOB Ratio 1.2 RATIO (0.9-2.4); AST(SGOT) 27 U/L (15-37); Alanine Aminotransfer ALT/SGPT 39 U/L (16-61); Albumin, Serum 4.1 g/dL (3.2-5.0); Alkaline Phosphatase 90 U/L (45-117); Anion Gap 7 (5-15); BUN 16 mg/dL (7-18); Calcium,Total 8.8 mg/dL (8.5-10.1); Chloride 111 mmol/L (98-107); Cholesterol 140 mg/dL (200); EST Glomerular Filtration Rate 88 mL/min (>60); Est Glom Filt Rate - Afr Amer 107 mL/min (>60); Globulin 3.5 g/dL (2.2-4.2); Glucose 77 mg/dL (74-106); High Density Lipoprotein 56 mg/dL; Potassium 3.9 mmol/L (3.5-5.1); Protein, Total 7.6 g/dL (6.4-8.2); Sodium Level 141 mmol/L (136-145); Thyroid Stim Hormone (TSH) 1.15 uIU/mL (0.358-3.74); Triglycerides 38 mg/dL; Very Low Density Lipoprotein 8 mg/dL (5-40)
== END | disposition home or self-care (01) ==
LOC: POLAB3 16:26
PROVIDERS: PCP Family Medicine Geriatric Medicine; Visit Provider Family Medicine Geriatric Medicine
DX: R53.83 Other fatigue (principal)
CPT/HCPCS: 36415; 80053; 80061; 84443; 85025

== ENCOUNTER → 2023-06-06 | Outpatient (CLI) | payer MEDICAID, SELFPAY ==
--- NOTE | 2023-06-06 13:40 | RAD_ITS ---
STUDY: X-RAY - RIGHT WRIST REASON FOR EXAM: Male, 38 years old. Right wrist pain. TECHNIQUE: 3 views of the right wrist were obtained. COMPARISON: None. FINDINGS: Normal visualized distal radius and ulna. Normal radiocarpal articulation. Normal distal radioulnar articulation. Normal carpal bones. Normal carpal articulations. Normal carpometacarpal articulation of the thumb. Normal second through fifth carpometacarpal articulations. Normal visualized metacarpal bones. The soft tissue structures are unremarkable. There is no demonstrated acute fracture. RAD/Wrist min 3 Views IMPRESSION: Normal x-ray examination of the right wrist. Electronically Signed: Tyrese Bacon MD at 8:19 EDT ,
== END | disposition home or self-care (01) ==
LOC: RAD 13:35
PROVIDERS: PCP Family Medicine Geriatric Medicine; Referring Provider Family Medicine Geriatric Medicine; Visit Provider Family Medicine Geriatric Medicine
DX: M25.531 Pain in right wrist (principal)
CPT/HCPCS: 73110

== ENCOUNTER 2023-09-04 02:59 | Emergency (ER) | payer MEDICAID, SELFPAY ==
[2023-09-04 03:00] VITALS: BP 135/86; PULSE 71; RESP 16; TEMP 36.4; O2SAT 99; BMI 32.1
--- NOTE | 2023-09-04 03:05 | EDS_ITS ---
HPI History of Present Illness Chief Complaint: Abd Pain [facility] Medical History Depression Fatty liver Smoker Home Medications citalopram 10 mg tablet 10 mg PO DAILY 02/09/21 [History Last Taken Unknown] Allergy/AdvReac Type Severity Reaction Status Date / Time No Known Allergies Allergy Verified 09/04/23 06:04 Social History household members: family Smoking Status: Current every day smoker tobacco type: cigarettes substance use type: does not use EXAM Physical Exam Const Vital Signs: 09/04/23 03:00 09/04/23 06:05 09/04/23 06:08 Temperature 97.5 F L Temperature Source Oral Pulse Rate 71 56 L 56 L Respiratory Rate 16 16 16 Blood Pressure 135/86 H 120/77 120/77 Blood Pressure Mean 102 91 91 Pulse Ox 99 98 98 Oxygen Delivery Method Room Air Room Air MDM MDM MDM Narrative Medical decision making narrative: HISTORY OF PRESENT ILLNESS: 38-year-old male here with abdominal pain. Notes nausea vomiting. Notes starte d 2 hours ago. REVIEW OF SYSTEMS: Pertinent positives: Abdominal pain, nausea vomiting Pertinent negatives: Chest pain, shortness of breath, urinary complaints, flank pain PHYSICAL EXAM: Nursing triage notes reviewed, Vital signs reviewed Constitutional: please see mdm HENT: MMM Eyes: Pupils equal round and reactive to light, Extraocular muscles intact Neck: No stridor, no JVD, full neck ROM Lungs: Clear to auscultation, No wheezing or rales. No increased work of breathing, no conversational dyspnea, no accessory muscle use, no nasal flaring. No respiratory distress noted Heart: Regular rate and rhythm, No murmurs, No rubs and No gallops, 2+ distal pulses (radial, femoral, posterior tibial) in all extremities Abdomen: Soft, there mild lower abdominal TTP, no rigidity, rebound or guarding, no obvious peritoneal signs, no palpable pulsatile abdominal masses, no auscultated abdominal bruit. Negative montgomery sign. : No CVAT Extremities: No edema Neuro: No focal neurological deficits, cranial nerves II through XII intact, 5/5 strength in all extremities. Intact sensation to light touch in all extremities, 2+ reflexes bilateral patella tendons. Normal gait. No ataxia. Skin: No rash or lesions noted, no jaundice. MEDICAL DECISION MAKING: Chief Complaint: Abdominal pain External records reviewed: Imaging reviewed: CT scan from 2019 shows no acute process Factors affecting care: none MDM Narrative: Patient was hemodynamically stable, afebrile, nontoxic-appearing. Abdominal exam I considered the following differential diagnosis: AAA, small bowel obstruction, abdominal perforation, appendicitis, pancreatitis, hepatobiliary pathology (acute cholecystitis), mesenteric ischemia, pathology (ie nephrolithiasis, pyelonephritis). ALL IMAGES (IF OBTAINED) HAVE BEEN PERSONALLY REVIEWED AND INTERPRETED BY MYSELF. BMP without evidence of significant electrolyte abnormalities, no anion gap, no acute kidney injury. CBC without leukocytosis, severe anemia, no thrombocytopenia. LFTs show no evidence of hepatobiliary pathology. Lipase is wnl indicating no pancreatic inflammation. CT scan abdomen pelvis shows no evidence of acute lower abdominal pathology. The patients CT scan does show concern for acute cholecystitis however patient has no upper quadrant tenderness negative Montgomery sign is no signs of hepatobiliary structure on labs. Repeat abdominal exam remained benign. No RUQ TTP. I have a very low suspicion for acute cholecystitis. So low in fact I think the patient is appropriate to be discharged and follow-up with his primary care physician for an outpatient ultrasound. I discussed this finding with the patient I offered further testing and/or admission and/or surgery consultation. The patient was alert and orient x 3 and had capacity to make his own medical decision and chose to forego further ED evaluation, ultrasound imaging or surgery consultation at this time and lieu of being discharged with instructions to take Tylenol and ibuprofen and follow with his primary care physician. He did promise return if symptoms change or worsen. The patient and/or family, caregivers express understanding. The patient and/or family, caregivers agrees with the plan. Shared decision making: I will have a discussion with the patient and or visitors regarding risk/benefits of further testing or admission. They will be made aware of of the risk/benefits inherent in this decision they will be given the opportunity to voice understanding. Total critical care time today provided was at least 0 minutes. This excludes separately billable procedures. Critical care time (if documented) is secondary to the patient having high probability of clinically significant/life threatening deterioration in the patient's condition which required my urgent intervention. Impression: 1. Lower abdominal pain 2. Gallstones Dispo: Discharge Lab Data Attestation: I reviewed the patient's lab results. Labs: Laboratory Results - last 24 hr 09/04/23 03:15 WBC 7.0 RBC 5.17 Hgb 15.6 Hct 46.7 MCV 90.3 MCH 30.2 MCHC 33.4 RDW Std Deviation 41.8 RDW Coeff of Eleonora 12.7 Plt Count 218 MPV 9.6 Immature Gran % (Auto) 0.400 Neut % (Auto) 51.4 Lymph % (Auto) 36.5 [place] % (Auto) 8.7 Eos % (Auto) 2.0 Baso % (Auto) 1.0 Absolute Neuts (auto) 3.6 Absolute Lymphs (auto) 2.55 Nucleated RBC % 0 Sodium 145 Potassium 3.8 Chloride 114 H Carbon Dioxide 27.0 Anion Gap 4 L BUN 15 Creatinine 1.07 Estim Creat Clear Calc 97.74 Est GFR (MDRD) Af Amer 98 Est GFR (MDRD) Non-Af 81 BUN/Creatinine Ratio 14.0 Glucose 92 Calcium 8.6 Total Bilirubin 0.20 Direct Bilirubin 0.06 AST 17 ALT 25 Alkaline Phosphatase 82 Total Protein 7.0 Albumin 3.8 Globulin 3.2 Lipase 31 Radiography Diagnostic Testing: Clinical Impression(s) from Imaging Studies Abdomen/Pelvis CT 09/04/23 03:11 IMPRESSION: Distended gallbladder with cholelithiasis, prominent cystic duct, and trace adjacent stranding. Recommend gallbladder ultrasound to further evaluate for cholecystitis. Normal appendix. No bowel obstruction or other acute finding. Electronically Signed: Reed De La Garza MD at 4:52 EST Reading Location ID and State: [address] [place] [address] Tel , Service support , Discharge Plan Triage Chief Complaint: Abd Pain ED Provider: Saurav Roca Dx/Rx/DC Orders Instructions: ED Abdominal Pain Unkn Cause Male... Prescriptions: No Action citalopram 10 mg tablet 10 mg PO DAILY Patient Comments: TAKE 1 TABLET BY MOUTH ONCE DAILY Primary Care Provider: Franki Freeman Chi Referrals: Franki Freeman Chi, MD [Primary Care Provider] - Activity Restrictions/Additional Instructions: Thank you for trusting us with your care today! Please take Tylenol (2 pills, 650 mg), ibuprofen (2 pills, 400 mg) every 6 hours as needed for pain and fever control. Please return to the emergency department if your symptoms change or worsen. There were abnormalities found on your CT scan that were concerning for health issues with your gallbladder. Please follow with your primary care physician to get an outpatient testing such as an ultrasound to further characterize this abnormality. Please follow with your primary care physician for further outpatient evaluation and management. Disposition Disposition: Home, Self Care Discharge Date/Time: 09/04/23 06:09
--- NOTE | 2023-09-04 03:11 | CT_ITS ---
INDICATION: Lower abdominal pain EXAMINATION: CT ABDOMEN AND PELVIS WITH CONTRAST - CT Abdomen And Pelvis W/ Contrast Injection TECHNIQUE: Helically acquired images were obtained of the abdomen and pelvis following IV contrast. A radiation dose optimization technique was used for this scan. IV Contrast dosage and agent: 100 mL Isovue-370 Oral contrast: None. CTDI 0.98. DLP 1051.34 COMPARISON: September 23, 2018. FINDINGS: LOWER CHEST: Lung bases are clear. No cardiomegaly or pericardial effusion. LIVER: Homogeneous. No focal mass. GALLBLADDER AND BILIARY TREE: Distended gallbladder with cholelithiasis and trace adjacent stranding. Prominent tortuous proximal cystic duct. . No intra- or extrahepatic biliary ductal dilation. PANCREAS: No focal cystic or solid mass. SPLEEN: Normal size without focal cystic or solid mass. ADRENAL GLANDS: No nodules. KIDNEYS AND URETERS: Normal renal size and position. No hydronephrosis. PERITONEUM: No ascites or free air. No other fluid collection. BOWEL: No evidence of acute appendicitis. No stomach or bowel distension. No focal inflammatory change. LYMPH NODES: No enlarged mesenteric or retroperitoneal lymph nodes. VESSELS: Aorta is non-dilated. URINARY BLADDER: Unremarkable. REPRODUCTIVE ORGANS: No pelvic masses. ABDOMINAL WALL: No discrete abdominal or pelvic wall hernia. BONES: No lytic or blastic abnormality. CT/Abdomen/Pelvis W IV Cont ONLY IMPRESSION: Distended gallbladder with cholelithiasis, prominent cystic duct, and trace adjacent stranding. Recommend gallbladder ultrasound to further evaluate for cholecystitis. Normal appendix. No bowel obstruction or other acute finding. Electronically Signed: Reed De La Garza MD at 4:52 EST ,
[2023-09-04 03:24] LABS: Absolute Lymphocyte Count 2.55 X10^3/uL (0.83-4.51); Absolute Neutrophil Count 3.6 X10^3/uL (2.0-7.7); Basophil# 0.07 X10^3/uL; Eosinophil# 0.14 X10^3/uL; Hematocrit 46.7 % (40-54); Hemoglobin 15.6 g/dL (13.0-16.5); Lymphocyte # 2.55 X10^3/ul (0.83-4.51); Lymphocyte % 36.5 % (19-41); Mean Corp Hgb Conc 33.4 g/dL (32-36); Mean Corpuscular Hgb 30.2 pg (27.0-32.0); Mean Corpuscular Volume 90.3 fL (80-94); Mean Platelet Vol. 9.6 fl (6.2-12.0); Monocyte# 0.61 X10^3/uL; Monocyte% 8.7 % (0-10); NRBC Flagged by Analyzer 0 % (0-5); Neutrophil # 3.58 X10^3/uL (2.7-7.7); Neutrophil % 51.4 % (47-70); Platelet Count 218 K/mm3 (150-450); RBC Distribution Width CV 12.7 % (11.6-14.6); RBC Distribution Width SD 41.8 fl (35.1-43.9); Red Blood Count 5.17 M/mm3 (4.6-6.2)
[2023-09-04] MEDS: 0.9% Normal Saline (1000mL) 1,000 ML 1000 ML IV (03:29)
[2023-09-04] MEDS: Ondansetron 4 MG/2 ML Vial IV (03:31)
[2023-09-04] MEDS: Ketorolac 15 MG/ML Vial IV (03:31)
[2023-09-04 03:41] LABS: AST(SGOT) 17 U/L (15-37); Alanine Aminotransfer ALT/SGPT 25 U/L (16-61); Albumin, Serum 3.8 g/dL (3.2-5.0); Alkaline Phosphatase 82 U/L (45-117); Anion Gap 4 (5-15); BUN 15 mg/dL (7-18); Bilirubin, Direct 0.06 mg/dL (0.00-0.30); Calcium,Total 8.6 mg/dL (8.5-10.1); Chloride 114 mmol/L (98-107); Creatinine, Serum 1.07 mg/dL (0.70-1.30); EST Glomerular Filtration Rate 81 mL/min (>60); Est Glom Filt Rate - Afr Amer 98 mL/min (>60); Estimated Creatinine Clearance 97.74 ml/min; Globulin 3.2 g/dL (2.2-4.2); Glucose 92 mg/dL (74-106); Lipase 31 U/L (13-75); Potassium 3.8 mmol/L (3.5-5.1); Sodium Level 145 mmol/L (136-145)
--- OUTSIDE RECORDS SUMMARY | 2023-09-04 03:55 | XMS RPT_ITS | CCD ---
Author Name Unknown Address [address] [place] [address] Organization [facility] Care Team Providers Care Salvage Grinder Name Role Phone Franki Freeman [facility] Primary Care Provider FRANKI FREEMAN [facility] Primary Care Unavailable TIFFANY ZAVALA Referring Unavailable FRANKI FREEMAN [facility] Primary Care Unavailable Medications Completed/Discontinued Medications Medication Drug Class(es) Dates Sig (Normalized) Sig (Original) escitalopram 10 mg oral tablet (1 source) Serotonin Reuptake Inhibitor Start: 05-04-2023 escitalopram oxalate (LEXAPRO) 10 mg tablet varenicline (1 source) Partial Cholinergic Nicotinic Agonist Start: 05-04-2023 varenicline (CHANTIX) 0.5 mg (11)- 1 mg (42) tablet Problems Problem Classification Problem Date Documented Da te Episodic/Chronic Other connective tissue disease (1 source) Pain in right hand; Translations: [Pain in right hand] 05-14-2023 Episodic Other connective tissue disease (1 source) Pain in right hand; Translations: [Right hand pain] Onset: 05-14-2023 Episodic Other non-traumatic joint disorders (1 source) Pain in wrist; Translations: [Pain in right wrist] 05-14-2023 Episodic Other non-traumatic joint disorders (1 source) Pain in right wrist; Translations: [Acute pain of right wrist] Onset: 05-14-2023 Episodic Results Test Name Value Interpretation Reference Range Facil ity Vital Signs Date Time Vital Sign Value Performing Clinician Facadarsh esteban 05-14-2023 10:55-0400 Body temperature 96.69 [degF] Tiffany Zavala BUSINESS JOB TITLES.GENERAL MAINTENANCE ENGINEER Work Phone: [facility] 05-14-2023 10:55-0400 Body weight 106.87 kg Tiffany Zavala BUSINESS JOB TITLES.GENERAL MAINTENANCE ENGINEER Work Phone: [facility] 05-14-2023 10:55-0400 Diastolic blood pressure 88 mm[Hg] Tiffany Garnica-Torin BUSINESS JOB TITLES.GENERAL MAINTENANCE ENGINEER Work Phone: [facility] 05-14-2023 10:55-0400 Heart rate 73 /min Tiffany Garnica-Torin BUSINESS JOB TITLES.GENERAL MAINTENANCE ENGINEER Work Phone: [facility] 05-14-2023 10:55-0400 Respiratory rate 20 /min Tiffany Zavala BUSINESS JOB TITLES.GENERAL MAINTENANCE ENGINEER Work Phone: [facility] 05-14-2023 10:55-0400 SaO2% (BldA) [Mass fraction] 98 % Tiffany Zavala BUSINESS JOB TITLES.GENERAL MAINTENANCE ENGINEER Work Phone: [facility] 05-14-2023 10:55-0400 Systolic blood pressure 128 mm[Hg] Tiffany Zavala BUSINESS JOB TITLES.GENERAL MAINTENANCE ENGINEER Work Phone: [facility] Encounters Encounter Date Encounter Type Care Provider Facility Start: 05-14-2023 End: 05-14-2023 ambulatory FRANKI CHI BINA Facility:[facility] Start: 05-14-2023 End: 05-14-2023 Patient encounter procedure Tiffany Zavala APRN.GENERAL MAINTENANCE ENGINEER Work Phone: [facility] Plan of Treatment Date Care Activity Detail Author Start: 05-06-2023 Influenza vaccination INFLUENZA (#1) [facility] Start: 09-05-2022 DEPRESSION ASSESSMENT DEPRESSION ASS ESSMENT [facility] Start: 03-11-2021 COVID-19 VACCINE (2 - Booster for Francia series) COVID-19 VACCINE (2 - Booster for Francia series) [facility] Start: 2018 LIPID SCREEN LIPID SCREEN [facility] Start: 2002 Urine microalbumin profile DTAP,TDAP,TD (1 - Tdap) [facility] Start: 2001 HEPATITIS C SCREENING HEPATITIS C SC REENING [facility] Start: 2001 HIV SCREENING HIV SCREENING [facility] Start: 1989 PNEUMOCOCCAL (1 - PCV) PNEUMOCOCCAL (1 - PCV) [facility] Start: 1983 HEPATITIS B (1 of 3 - 3-dose series) HEPATITIS B (1 of 3 - 3-dose series) [facility] Payers Date Payer Category Payer Medicaid [employer] [facility] MEDICAID [id number] 2022-Present [phone] [address] [place] [address] Medicaid [id number] 2022 Medicaid [id number] Social History Date Type Detail Facility Start: 05-14-2023 Tobacco smoking stat [facility] Smokes tobacco daily [facility] History of tobacco use Cigarette Smoker C [facility] History of tobacco use Passive smoker [facility] Start: 05-14-2023 Tobacco use and exposure Smoke less tobacco non-user [facility] Start: 05-14-2023 History of Social function [facility] Start: 05-14-2023 Tobacco use panel [facility] Start: 1983 Sex Assigned At Not on file C [facility] Progress note 05-14-2023 Note Date & Type Note Facility 05-14-2023 Note HNO ID: [id number] Author: Jane Campoverde RT(R) Service: Radiology Author Type: Technologist Type: Progress Notes Filed: 05/14/2023 11:24 AM Note Text: Radiology Service Progress Note PATIENT NAME: Alan Bell DATE OF SERVICE: May 14, 2023 TIME: 11:12 AM PATIENT IDENTITY VERIFICATION COMPLETED USING TWO (2) IDENTIFIERS: Name and Date of confirmed by patient verbally. FALL SCREENING: Has the patient had 2 falls in the last year or 1 fall with injury or currently using an Ambulatory Assistive Device (Walker, Cane, Wheelchair, Crutches, etc.)? No PATIENT GENDER DATA: Male PATIENT RELEVANT IMPLANT DATA REVIEWED: Yes RADIOLOGY DEPARTMENT: General X-ray: Exam(s) Completed: Upper Extremity X-Ray(s): Wrist, right and Hand, right PERIPHERAL IV DATA: Not applicable SIGNED BY: LETICIA Wong) May 14, 2023 11:12 AM [facility] Progress note 05-14-2023 Note Date & Type Note Facility 05-14-2023 Note HNO ID: [id number] Author: Tiffany Zavala APRN.GENERAL MAINTENANCE ENGINEER Service: ? Author Type: Nurse Practitioner Type: Progress Notes Filed: 05/14/2023 11:47 AM Note Text: Subjective Trauma Pertinent negatives include no chills, fever or rash. Alan Bell is a 38 year old male who presents with right wrist and hand pain. He was twisted something forcefully at work and had pain occur, and it has persisted since. He state the pain shoots into his arm when he bends his wrist a certain way, and he has had some swelling of his thumb and second finger. Review of Systems Constitutional: Negative for chills and fever. Musculoskeletal: Positive for joint pain. Negative for falls. See HPI Skin: Negative for itching and rash. BP 128/88 Pulse 73 Temp (!) 35.9 ?C (96.7 ?F) Resp 20 Wt 106.9 kg (235 lb 9.6 oz) SpO2 98% No past medical history on file. No past surgical history on file. ALLERGIES Patient has no allergy information on record. MEDICATIONS varenicline (CHANTIX) 0.5 mg (11)- 1 mg (42) tablet escitalopram oxalate (LEXAPRO) 10 mg tablet No family history on file. Social History Tobacco Use Smoking status: Every Day Types: Cigarettes Passive exposure: Current Smokeless tobacco: Never Objective Physical Exam Vitals and nursing note reviewed. Constitutional: Appearance: Normal appearance. Musculoskeletal: General: Tenderness present. No swelling or deformity. Hands: Skin: General: Skin is warm and dry. Findings: No bruising, erythema or rash. Neurological: Mental Status: He is alert. ASSESSMENT/PLAN: 1. Right hand pain - ICD9: 729.5, ICD10: M79.641 (primary diagnosis) - XR HAND GENERAL 3V PA/LAT/OBL RIGHT 2. Acute pain of right wrist - ICD9: 719.43, ICD10: M25.531 - XR WRIST GENERAL 3V PA/LAT/OBL RIGHT Radiologist RESULT: No fracture. Joint spaces are maintained. Bony mineralization is normal. No erosions or other significant abnormality. IMPRESSION: No acute osseous abnormality. Propulsion Machinery Service Engineer: YUNI Transcribe Date/Time: May 14 2023 11:25A Dictated by : MAGDALENO GENTILE DO - suspect sprain. - wrist splint applied to right wrist. Patient state splint is comfortable. Wear this for one week. RICE therapy as directed. May take ibuprofen/tylenol for pain. - Follow-up with your PCP in 3-5 days if symptoms have not improved or sooner if symptoms worsen - Discussed red flags and need for immediate medical evaluation if any occur. - Discussed supportive care treatment with fluids, rest and analgesia. - Discussed expected course of illness Tiffany Zavala APRN.CNP [facility] Instructions 05-14-2023 Patient Instructions Note Date & Type Note Facility 05-14-2023 Instructions Tiffany Zavala APRN.GENERAL MAINTENANCE ENGINEER - 05/14/2023 11:47 AM EDT ASSESSMENT/PLAN: 1. Right hand pain - ICD9: 729.5, ICD10: M79.641 (primary diagnosis) - XR HAND GENERAL 3V PA/LAT/OBL RIGHT 2. Acute pain of right wrist - ICD9: 719.43, ICD10: M25.531 - XR WRIST GENERAL 3V PA/LAT/OBL RIGHT Radiologist RESULT: No fracture. Joint spaces are maintained. Bony mineralization is normal. No erosions or other significant abnormality. IMPRESSION: No acute osseous abnormality. Propulsion Machinery Service Engineer: YUNI Transcribe Date/Time: May 14 2023 11:25A Dictated by : MAGDALENO GENTILE DO - suspect sprain. - wrist splint applied to right wrist. Patient state splint is comfortable. Wear this for one week. RICE therapy as directed. May take ibuprofen/tylenol for pain. - Follow-up with your PCP in 3-5 days if symptoms have not improved or sooner if symptoms worsen - Discussed red flags and need for immediate medical evaluation if any occur. - Discussed supportive care treatment with fluids, rest and analgesia. - Discussed expected course of illness Tiffany Zavala APRN.WILLIE Sprains of the Ankle, Knee and Wrist What is a sprain? A sprain occurs when a ligament (a band of tissue that connects two or more bones at a joint) is stretched and/or torn. During a sprain, one or more ligaments may be injured. The severity of the sprain depends on the number of ligaments injured and the extent of the injury (whether there is a partial or complete tear). What causes a sprain? A sprain is caused by either direct or indirect trauma that knocks the joint out of position and overstretches, sometimes rupturing the supporting ligaments. Examples of trauma include rolling of the ankle, a fall or a blow to the body. Where do sprains occur? Sprains occur in both the upper and lower parts of the body. However, the three most common sprain sites are the ankle, knee and wrist. Ankle sprain-- typically occurs when the foot turns inward as a person runs, turns or lands on the ankle after a jump. Knee sprain-- typically occurs after a blow to the knee or a fall. Sudden twisting of the knee may result in a sprain. Wrist sprain --typically occurs when one falls and lands on an outstretched hand. Who is at risk for sprains? Both professional and amateur athletes-- as well as the general public--can sustain this type of injury. However, those who have a history of sprains, are overweight and are in poor physical condition have increased risk. What are the signs and symptoms of sprains? Signs and symptoms may vary due to severity of injury. They may include: Pain Swelling Inflammation Bruising Instability Loss of the ability to move and use the joint When should I see a health care provider for a sprain? You have severe pain and cannot put weight on the injured joint. The injured area looks crooked, has lumps and bumps (other than swelling) that you do not see on the uninjured joint. You cannot move the injured joint. There is numbness in any part of the injured area. Redness or red streaks spread out from the injury. You injure an area that has been injured before. You have pain, swelling or redness over a bony part of your foot. You are in doubt about the seriousness of the injury and/or how to care for it. How are sprains treated? Health care providers advise patients to follow the rest, ice, compress and elevation (RICE) method for the first 24 to 48 hours after the injury. Rest?Reduce regular exercises and activities of daily living. Your health care provider may advise you to not put weight on the injured area for 48 hours. You may need to use crutches. Ice?Apply an ice pack to injured area for 20 minutes, four to eight times a day. You can use a cold pack, ice bag or plastic bag filled with ice wrapped in a towel. To avoid horton bite and cold injury, do not apply the ice for longer than 20 minutes at a time. Compression?Compression of the injured area my help reduce swelling. Elastic wraps, specialized boots, air casts and splints may be used as compression bandages. Ask your health care provider which would be the most appropriate to use. Also ask how tightly to apply the bandage safely. Elevation?In order to help decrease swelling, keep the injured area elevated on a pillow above the level of your heart. How can I help prevent sprains? To help reduce the risk of sprains: Avoid exercising or playing sports when tired or in pain. Maintain a healthy weight and well- balanced diet to keep muscles strong. Wear shoes that fit properly. Practice safety measures to prevent falls. Do stretching exercises daily. Warm up and stretch before doing any physical activity. References National [place] of Arth[employer] and Musculoskeletal and Skin Diseases. Questions and Answers about Sprains and Strains Accessed 01/08/2014. [employer]. Sprains and Strains: What's the Difference? Accessed 01/08/2014. Copyright 9738-6696 The [facility]. All rights reserved. This information is provided by the [facility] and is not intended to replace the medical advice of your doctor or health care provider. Please consult your health care provider for advice about a specific medical condition. For additional health information, please contact the Center for Consumer Health Information at the [facility] or toll-free extension [phone]. If you prefer, you may visit [email or web address] or [email or web address]. This document was last reviewed on: 2014 index#[id number] documented in this encounter [facility] History of Present illness Narrative 05-14-2023 Tiffany Zavala APRN.GENERAL MAINTENANCE ENGINEER - 05/14/2023 11:06 AM EDT Note Date & Type Note Facility 05-14-2023 History of Presen t illness Narrative Images from the original note were not included. Subjective Trauma Pertinent negatives include no chills, fever or rash. Alan Bell is a 38 year old male who presents with right wrist and hand pain. He was twisted something forcefully at work and had pain occur, and it has persisted since. He state the pain shoots into his arm when he bends his wrist a certain way, and he has had some swelling of his thumb and second finger. Review of Systems Constitutional: Negative for chills and fever. Musculoskeletal: Positive for joint pain. Negative for falls. See HPI Skin: Negative for itching and rash. BP 128/88 Pulse 73 Temp (!) 35.9 C (96.7 F) Resp 20 Wt 106.9 kg (235 lb 9.6 oz) SpO2 98% No past medical history on file. No past surgical history on file. ALLERGIES Patient has no allergy information on record. MEDICATIONS varenicline (CHANTIX) 0.5 mg (11)- 1 mg (42) tablet escitalopram oxalate (LEXAPRO) 10 mg tablet No family history on file. Social History Tobacco Use Smoking status: Every Day Types: Cigarettes Passive exposure: Current Smokeless tobacco: Never Objective Physical Exam Vitals and nursing note reviewed. Constitutional: Appearance: Normal appearance. Musculoskeletal: General: Tenderness present. No swelling or deformity. Hands: Skin: General: Skin is warm and dry. Findings: No bruising, erythema or rash. Neurological: Mental Status: He is alert. ASSESSMENT/PLAN: 1. Right hand pain - ICD9: 729.5, ICD10: M79.641 (primary diagnosis) - XR HAND GENERAL 3V PA/LAT/OBL RIGHT 2. Acute pain of right wrist - ICD9: 719.43, ICD10: M25.531 - XR WRIST GENERAL 3V PA/LAT/OBL RIGHT Radiologist RESULT: No fracture. Joint spaces are maintained. Bony mineralization is normal. No erosions or other significant abnormality. IMPRESSION: No acute osseous abnormality. Propulsion Machinery Service Engineer: YUNI Transcribe Date/Time: May 14 2023 11:25A Dictated by : MAGDALENO GENTILE, - suspect sprain. - wrist splint applied to right wrist. Patient state splint is comfortable. Wear this for one week. RICE therapy as directed. May take ibuprofen/tylenol for pain. - Follow-up with your PCP in 3-5 days if symptoms have not improved or sooner if symptoms worsen - Discussed red flags and need for immediate medical evaluation if any occur. - Discussed supportive care treatment with fluids, rest and analgesia. - Discussed expected course of illness Tiffany Zavala APRN.CNP documented in this encounter [facility] Evaluation note Note Date & Type Note Facility documented in this encounter [facility] Reason for referral (narrative) Diagnostic Procedure Only (Urgent) - Closed Note Date & Type Note Facility Referral ID Status Reason Start Date Expiration Date V isits Requested Visits Authorized [id number] Closed Auto-Generate d Referral 05/14/2023 06/12/2024 1 1 * Diagnostic Procedure Only (Urgent) - Closed Specialty Diagnoses / Procedures Referred By Odessa morales Referred To Contact XR IMAGING Diagnoses Acute pain of right wrist Procedures XR WRIST GENERAL 3V PA/LAT/OBL RIGHT RADEX WRIST COMPLETE MINIMUM 3 VIEWS Tiffany Zavala APRN.GENERAL MAINTENANCE ENGINEER [address] [place] [address] [place] [id number] Referral ID Status Reason Start Date Expiration Date V isits Requested Visits Authorized [id number] Closed Auto-Generate d Referral 05/14/2023 06/12/2024 [address] [facility] Summary Purpose Family History No Family History Records Found Advance Directives No Advanced Directives Records Found Additional Source Comments Source Comments (unrecognize d section and content) In the event this informatio n is protected by the Federal Confidentiality of Alcohol and Drug Abuse Patient Records regulations: The Federal rules restrict any use of the information to criminally investigate or prosecute any alcohol or drug abuse patient.[facility] Reason for Visit (unrecogniz ed section and content) Care Teams (unrecognized sec tion and content) (unrecognized sect ion and content) No Status Records Found INFORMATION SOURCE (unrecogn ized section and content) FOR RECORDS PERTAINING TO PATIENTS WHO ARE OR HAVE BEEN ENROLLED IN A CHEMICAL DEPENDENCY/SUBSTANCEABUSE PROGRAM, SOME INFORMATION MAY BE OMITTED. This clinical summary was aggregated from multiple sources. Caution should be exercised in using it in the provision of clinical care. This summary normalizes information from multiple sources, and as a consequence, information in this document may materially change the coding, format and clinical context of patient data. In addition, data may be omitted in some cases. CLINICAL DECISIONS SHOULD BE BASED ON THE PRIMARY CLINICAL RECORDS. [facility]. provides no warranty or guarantee of the accuracy or completeness of information in this document.
[2023-09-04 04:47] LABS: Bacteria 0 SEEN /hpf (None Seen); Mucous, Urine 0 SEEN /hpf (<or=2+); Red Blood Cells-Urine 0 SEEN /hpf (0-5); Squamous Epithelial Cells - UA 0 SEEN /hpf (0-5); White Blood Cells 0 SEEN /hpf (0-5)
[2023-09-04 04:48] LABS: Color, Urine Yellow (Yellow); Glucose, Dipstick Normal (Normal); Ketone-Dipstick Negative (Negative); Leukocyte Esterase-Dipstick Negative /ul (Negative); Nitrite-Dipstick Negative (Negative); Occult Blood-Urine Negative /ul (Negative); Protein-Dipstick Negative (Negative); Urine Bilirubin Dipstick Negative (Negative); Urine Clarity Clear (Clear); Urine Urobilinogen Normal (Normal)
[2023-09-04 06:05] VITALS: BP 120/77; PULSE 56; RESP 16; O2SAT 98
[2023-09-04 06:08] VITALS: BP 120/77; PULSE 56; RESP 16; O2SAT 98
== END 2023-09-04 06:09 | disposition home or self-care (01) ==
PROVIDERS: Emergency Provider Emergency Medicine; PCP Family Medicine Geriatric Medicine; Visit Provider Emergency Medicine
DX: K80.20 Calculus of gallbladder without cholecystitis without obstruction (principal); R10.30 Lower abdominal pain, unspecified; F17.210 Nicotine dependence, cigarettes, uncomplicated; F32.A Depression, unspecified; K76.0 Fatty (change of) liver, not elsewhere classified; Z79.899 Other long term (current) drug therapy
CPT/HCPCS: 74177; 80048; 80076; 81001; 83690; 85025; 96361; 96374; 99283; J7030; Q9967; A4216; J2405

== ENCOUNTER → 2023-09-27 | Outpatient (CLI) | payer MEDICAID, SELFPAY ==
--- NOTE | 2023-09-27 08:53 | US_ITS ---
STUDY: ABDOMINAL ULTRASOUND - RIGHT UPPER QUADRANT REASON FOR VISIT: Male, 38 years old RUQ PAIN TECHNIQUE: Ultrasound evaluation of the right upper quadrant was performed with real-time and static lyons-scale imaging. TECHNICAL QUALITY: Adequate. COMPARISON: None. FINDINGS: Liver: The liver measures 15.7 cm. There is increased echogenicity consistent with fatty infiltration. The bile ducts are within normal limits. There is hepatic color flow. The direction of portal flow is hepatopetal. There is no demonstrated mass lesion. Gallbladder: Normal distended gallbladder. The gallbladder wall is slightly thickened and measures 4.3 mm. There is a negative sonographic Montgomery''s sign. There is a small amount of pericholecystic fluid. There are multiple echogenic structures within the gallbladder, consistent with multiple small gallstones. Sludge is seen within the gallbladder lumen. Common Bile Duct (C.B.D.): The common bile duct measures 3.5 mm. Pancreas: There is nonvisualization of the pancreas due to overlying bowel gas. Right Kidney: Normal size of the right kidney. The right kidney measures 12 cm x 4.8 cm x 5.2 cm. Normal renal cortex. The right cortex measures 1.0 cm. There is no demonstrated renal mass or cyst. There is no right hydronephrosis. US/Abdomen Limited IMPRESSION: Mild degree of fatty infiltration of the liver. Multiple small gallstones are seen in the gallbladder lumen with sludge. Minimal amount of fluid is surrounding the gallbladder. Mildly thickened gallbladder wall. Electronically Signed: Roge Alvarado MD at 14:44 EST ,
--- NOTE | 2023-09-27 08:53 | NM_ITS ---
CLINICAL: 38-year-old male with history of right upper quadrant pain and nausea. RADIONUCLIDE HEPATOBILIARY SCINTIGRAPHY COMPARISON: Abdominal ultrasound report 09/27/2023 FINDINGS: Following the intravenous administration of 5.6 mCi of 99m Tc Mebrofenin, hepatobiliary images reveal: 1. Relatively prompt and homogeneous radiopharmaceutical concentration is noted by a normal sized liver. No parenchymal defects are identified. 2. Gallbladder activity is not identified during 120 minutes of sequential imaging. 3. Small intestinal tract is observed at 10 minutes post radiopharmaceutical administration. 4. Washout of the radiopharmaceutical by the hepatic parenchyma appears qualitatively normal. NM/Hepatobilliary Imaging IMPRESSION: 1. ABNORMAL 99m Tc Mebrofenin hepatobiliary imaging examination A. Nonvisualization of the gallbladder at 120 minutes post radiopharmaceutical administration in the nonacute setting is consistent with a high probability of chronic cholecystitis in patients with intermediate to high pretest probabilities of hepatobiliary disease and who have fasted for more than 4 and less than 24 hours. (Alice et al, Nucl Med Shakila Razia Press pg. 35, 1980). Electronically Signed: Tarik Lang DO at 22:53 EST ,
== END | disposition home or self-care (01) ==
PROVIDERS: PCP Family Medicine Geriatric Medicine; Referring Provider Family Medicine Geriatric Medicine; Visit Provider Family Medicine Geriatric Medicine
DX: K80.10 Calculus of gallbladder with chronic cholecystitis without obstruction (principal)
CPT/HCPCS: 76705; 78226; A9537

== ENCOUNTER 2023-10-14 09:24 | Day surgery (SDC) | payer MEDICAID, SELFPAY ==
[2023-10-14] VITALS (8 sets, daily range): BP systolic 93–119; BP diastolic 61–77; PULSE 58–64; RESP 16–20; TEMP 36.6–36.9; O2SAT 96–99; BMI 31.4
--- NOTE | 2023-10-14 09:36 | EKG12_ITS ---
Test Reason : PREOP Blood Pressure : / mmHG Vent. Rate : 066 BPM Atrial Rate : 066 BPM P-R Int : 162 ms QRS Dur : 092 ms QT Int : 364 ms P-R-T Axes : 081 -12 041 degrees QTc Int : 381 ms Normal sinus rhythm Normal ECG Baseline artifact Confirmed by Nestor Sprague ([id number]), slot editor TREVOR PRIETO ([id number]) on 10/18/2023 9:46:03 AM Referred By: Franki Freeman Confirmed By:Nestor Sprague
--- OUTSIDE RECORDS SUMMARY | 2023-10-14 10:14 | XMS RPT_ITS | CCD ---
Author Name Unknown Address [address] [place] [address] Organization [facility] Care Team Providers Care Cloth Colorer Name Role Phone Franki Freeman Chi Primary [...] 10:55-0400 Body temperature 96.69 [degF] Tiffany Zavala MEDICAL VIDEOGRAPHER.SWING TENDER Work Phone: [facility] 05-14-2023 10:55-0400 Body weight 106.87 kg Tiffany Zavala MEDICAL VIDEOGRAPHER.SWING TENDER Work Phone: [facility] 05-14-2023 10:55-0400 Diastolic blood pressure 88 mm[Hg] Tiffany Garnica-Torin MEDICAL VIDEOGRAPHER.SWING TENDER Work Phone: [facility] 05-14-2023 10:55-0400 Heart rate 73 /min Tiffany Garnica-Torin MEDICAL VIDEOGRAPHER.SWING TENDER Work Phone: [facility] 05-14-2023 10:55-0400 Respiratory rate 20 /min Tiffany Zavala MEDICAL VIDEOGRAPHER.SWING TENDER Work Phone: [facility] 05-14-2023 10:55-0400 SaO2% (BldA) [Mass fraction] 98 % Tiffany Zavala MEDICAL VIDEOGRAPHER.SWING TENDER Work Phone: [facility] 05-14-2023 10:55-0400 Systolic blood pressure 128 mm[Hg] Tiffany Zavala MEDICAL VIDEOGRAPHER.SWING TENDER Work Phone: [facility] Encounters Encounter Date Encounter Type Care Provider Facility Start: 05-14-2023 End: 05-14-2023 ambulatory FRANKI CHI BINA Facility:[facility] Start: 05-14-2023 End: 05-14-2023 Patient encounter procedure Tiffany Zavala APRN.SWING TENDER Work Phone: [facility] Plan of Treatment Date Care Activity Detail Author Start: 05-06-2023 Influenza vaccination INFLUENZA (#1) [facility] Start: 09-05-2022 DEPRESSION ASSESSMENT DEPRESSION ASS ESSMENT [facility] Start: 03-11-2021 COVID-19 VACCINE (2 - Booster for Francia series) COVID-19 VACCINE (2 - Booster for Francia series) [facility] Start: 2018 LIPID SCREEN LIPID SCREEN [facility] Start: 2002 Urine microalbumin profile DTAP,TDAP,TD (1 - Tdap) [facility] Start: 2001 HEPATITIS C SCREENING HEPATITIS C SC REENING [facility] Start: 2001 HIV SCREENING HIV SCREENING [facility] Start: 1989 PNEUMOCOCCAL (1 - PCV) PNEUMOCOCCAL (1 - PCV) [facility] Start: 1983 HEPATITIS B (1 of 3 - 3-dose series) HEPATITIS B (1 of 3 - 3-dose series) [facility] Payers Date Payer Category Payer Medicaid [employer] [facility] MEDICAID [id number] 2022-Present [phone] [address] [place] [address] Medicaid [id number] 2022 Medicaid [id number] Social History Date Type Detail Facility Start: 05-14-[address] [facility] Smokes tobacco daily [facility] History of tobacco use Cigarette Smoker C [facility] History of tobacco use Passive smoker [facility] Start: 05-14-2023 Tobacco use and exposure Smoke less tobacco non-user [facility] Start: 05-14-2023 History of Social function [facility] Start: 05-14-2023 Tobacco use panel [facility] Start: 1985 Sex Assigned At Not on file C [facility] Progress note 05-14-2023 Note Date & Type Note Facility 05-14-2023 Note HNO ID: [id number] Author: Jane Campoverde RT(R) Service: Radiology Author [...] LETICIA Wong) May 14, 2023 11:12 AM [facility] Progress note 05-14-2023 Note Date & Type Note Facility 05-14-2023 Note HNO ID: [id number] Author: Tiffany Zavala APRN.SWING TENDER Service: ? Author Type: Nurse Practitioner Type: [...] significant abnormality. IMPRESSION: No acute osseous abnormality. Sea Kayaking Guide: YUNI Transcribe Date/Time: May 14 2023 11:25A [...] expected course of illness Tiffany Zavala APRN.CNP [facility] Instructions 05-14-2023 Patient Instructions Note Date & Type Note Facility 05-14-2023 Instructions Tiffany Zavala APRN.SWING TENDER - 05/14/2023 11:47 AM EDT ASSESSMENT/PLAN: 1. [...] significant abnormality. IMPRESSION: No acute osseous abnormality. Sea Kayaking Guide: YUNI Transcribe Date/Time: May 14 2023 11:25A [...] before doing any physical activity. References National [place] of Arthritis and Musculoskeletal and Skin Diseases. Questions and Answers about Sprains and Strains Accessed 01/08/2014. [employer] [employer]. Sprains and Strains: What's the Difference? Accessed 01/08/2014. Copyright 2532-1307 The [facility]. All rights reserved. This information is provided by the [facility] and is not intended to replace the medical advice of your doctor or health care provider. Please consult your health care provider for advice about a specific medical condition. For additional health information, please contact the Center for Consumer Health Information at the [facility] or toll-free extension [phone]. If you prefer, you may visit [email or web address] or [email or web address]. This document was last reviewed on: 2014 index#[id number] documented in this encounter [facility] History of Present illness Narrative 05-14-2023 Tiffany Zavala APRN.SWING TENDER - 05/14/2023 11:06 AM EDT Note Date [...] significant abnormality. IMPRESSION: No acute osseous abnormality. Sea Kayaking Guide: YUNI Transcribe Date/Time: May 14 2023 11:25A [...] Tiffany Zavala APRN.CNP documented in this encounter [facility] Evaluation note Note Date & Type Note Facility documented in this encounter [facility] Reason for referral (narrative) Diagnostic Procedure Only (Urgent) - Closed Note Date & Type Note Facility Referral ID Status Reason Start Date Expiration Date V isits Requested Visits Authorized [id number] Closed Auto-Generate d Referral 05/14/2023 06/12/2024 1 1 * Diagnostic Procedure Only (Urgent) - Closed Specialty Diagnoses / Procedures Referred By Odessa morales Referred To Contact XR IMAGING Diagnoses Acute pain of right wrist Procedures XR WRIST GENERAL 3V PA/LAT/OBL RIGHT RADEX WRIST COMPLETE MINIMUM 3 VIEWS Tiffany Zavala APRN.SWING TENDER [address] [place] [address] [place] [id number] Referral ID Status Reason Start Date Expiration Date V isits Requested Visits Authorized [id number] Closed Auto-Generate d Referral 05/14/2023 06/12/2024 1 1 [facility] Summary Purpose Family History No Family [...] or prosecute any alcohol or drug abuse patient.[facility] Reason for Visit (unrecogniz ed section [...] BE BASED ON THE PRIMARY CLINICAL RECORDS. [facility] [employer] [facility]. provides no warranty or guarantee of the accuracy or completeness of information in this document.
[2023-10-14] MEDS: Lactated Ringers 1,000 ML 15 ML IV (10:23)
--- NOTE | 2023-10-14 11:00 | GALL_PTH ---
PATHOLOGY RESULTS PATIENT: CARL NAVARRO LOC: [facility] U#:[id number] AGE/SX: 38/M ROOM: RE10/14/[address]: Dr. Nestor Cornejo MD : 1985 BED: DIS: 10/14/2023 SPEC #: [id number] RECD: 10/17/23 07:34 STATUS: ZENOBIA MARLIN #: [id number] PETRA: 10/14/23 11:[address]: Nestor Cornejo DEPT: SURGICAL PATHOLOGY RECD BY: Archana Deshpande ENTERED: 10/17/23 07:34 SP TYPE: SHELTON PARIKH DR: Dr. Franki Freeman MD Tissues: Gallbladder, NOS Procedures: Surgery Specimen Level III HEADER OPERATION: Laparoscopic cholecystectomy with IOC PRE-OP DIAGNOSIS: Abnormal HIDA scan, cholecystitis TISSUE SUBMITTED: Gallbladder MICROSCOPIC DIAGNOSIS Gallbladder, cholecystectomy: Chronic cholecystitis and cholelithiasis. SJ:rossy 10/18/2023 MICROSCOPIC DESCRIPTION Slides are reviewed. GROSS DESCRIPTION Received is one container labeled with the patient's name and designated gallbladder. The specimen consists of a gallbladder measuring 9.0 cm in length and up to 6.0 cm in diameter. The external surface is pink-cramer, smooth and glistening for the most part. Focally it is granular, hemorrhagic and contains cautery artifact. The gallbladder contains scant amount of green-yellow mucoid bile and sludge material and multiple brown-yellow irregular stones measuring in aggregate 4.5 x 4.0 x 1.0 cm and 0.3 to 0.8 cm in greatest dimension. The mucosa is bile-stained and without any mass lesions. The gallbladder wall measures up to 0.3 cm in thickness. Tower Erector sections from the gallbladder and the cystic duct are submitted in one cassette. / ANTHONY:rossy 10/17/2023 TC:3 CPT: 50564
[2023-10-14] MEDS: Cefazolin 2 GM in 0.9% Normal Saline (100mL Bag) 100 ML IV (11:22)
--- NOTE | 2023-10-14 11:27 | PCM.HP.BLA ---
History and Physical Date of Admission: 10/14/23 Date of Service: 09/29/23 MR#: [id number] Acct: [id number] Name: CARL NAVARRO Rep #: [id number] : 1985 Provider: Dr. 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 Required: No Accompanied by: Is patient in pain?: No Allergies adhesive tape Allergy (Intermediate, Verified 09/29/23 14:37) Rash Medications citalopram 10 mg tablet 10 mg PO DAILY 02/09/21 [History Confirmed 09/04/23] primidone 50 mg tablet 50 mg PO TID 09/29/23 [History Confirmed 09/29/23] PFSH Medical History Abdominal pain Biliary dyskinesia Cholelithiasis Contusion of right hand, initial encounter Depression Fatty liver GERD (gastroesophageal reflux disease) Near syncope Seizures Smoker Surgical History (Updated 09/29/23 @ 14:35 by Rosalie Hanley) History of cataract surgery History of nasal surgery Social History (Updated 09/29/23 @ 14:35 by Rosalie Hanley) household members: family Smoking Status: Current every day smoker tobacco type: cigarettes alcohol intake: never substance use type: does not use HPI HPI HPI: Patient is a 38-year-old male who presents for evaluation of his gallbladder. They are referred for surgical consultation from Dr. Freeman after being initially seen in the emergency department on 09/04/2023. Patient presents today with his . He shares that he continues to experience stabbing abdominal pain that moves from around his bellybutton to his right upper quadrant every 2 days. He denies any associated time of day or association with mealtime. He denies any weight loss in relation to this pain. He confirms a history of reflux but clearly distinguishes this pain from that discomfort and states that his reflux is overall well-controlled on omeprazole. Previous work-up has included: Right upper quadrant ultrasound that showed a 4 mm gallbladder wall and pericholecystic fluid as well as a HIDA scan that demonstrated nonvisualization of the gallbladder and 120 minutes (both studies were performed 09/27/2023). Patient has past medical history notable for tobacco use, GERD (as above), and depression. Patient's only prior surgical history was a nasal operation and cataract correction ROS General General: Yes weight change; No appetite, fatigue, colon cancer, breast cancer or weakness HEENT HEENT: Yes eye surgery; No difficulty swallowing, eye injury, swollen glands or hoarseness Endo Endocrine: No thyroid disease, diabetes mellitus, thyroid cancer, Hair loss, heat intolerance or cold intolerance Skin Skin: No rash or changing moles Breast Breast: No left breast lump, right breast lump, nipple discharge, breast pain, abnormal mammogram, abnormal US or breast enlargement Musc Musculoskeletal: No back problems, arthritis, rheumatoid arthritis, gout or joint pain Cardio Cardiovascular: No murmur, pacemaker, heart disease, atrial fibrillation, high blood pressure, heart attack, heart stent, palpitations, shortness of breat with exertion or chest pain Psych Psychiatric: Yes depression; No anxiety or hearing voices Resp Respiratory: No shortness of breath, No sleep apnea, No cough, No COPD, No asthma, No emphysema and No wheezing Gastro Gastrointestinal: Yes abdominal pain, No nausea or vomiting, No diarrhea, No constipation, No blood in stool, Yes acid reflux, No hemorrhoids, No ulcers, Yes gallbladder problem and No black,tarry stools Ishmael Hematologic: No blood thinners, No blood disorders, No bleeding, No anemia and No blood clots Neuro Neurologic: No system reviewed and no additional complaints, except as documented, No as per HPI, No abnormal gait, No abnormal hearing, No abnormal movements, No abnormal speech, No behavioral changes, No burning sensations, No confusion, No convulsions, No disequilibrium, No dizziness, No localized weakness, No frequent falls, No headache(s), No lack of coordination, No loss of vision, No memory loss, No numbness, No other visual disturbances, No radicular pain, No restless legs, No sensory deficit, No syncope, No tingling, No tremor(s), No weakness and No other Exam Const General: cooperative and anxious Nutritional Appearance: obese Orientation: alert, awake and oriented x3 Resp Effort & Inspection: normal respiratory effort GI Other: No scars, nondistended, obese, soft, tender to palpation in the right upper quadrant and suprapubic positions Assessment and Plan Assessment and Plan (1) Abnormal biliary HIDA scan: Status: Acute (2) Cholecystitis: Status: Acute Plan Patient is a 38-year-old male with 3-1/2-week history of abdominal pain which is roughly localized to the right upper quadrant. Moreover, CT imaging, ultrasound imaging, and HIDA imaging are all suggestive of probable cholecystitis. This diagnosis is further confirmed with patient's exam. Thus I have recommended that we proceed with a laparoscopic cholecystectomy and intraoperative cholangiograms at patient's earliest convenience. I described the operation including the use of hand drawings to facilitate discussions around relevant anatomy. I shared the relevant risks to include possible bleeding, infection, biliary injury,?. I discussed that we would plan for an outpatient disposition, but that patient may require an overnight stay for further recovery. Lastly I shared that we could plan for outpatient follow-up 1 week postop to determine whether or not patient was recovered far enough to proceed with light duty at work or remain out of work for a full 2 weeks postop. 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 I have examined the patient and the H&P has been reviewed. There are no clinical changes since date of exam. Patient has persistent right upper quadrant pain but otherwise denies any health updates. He is anxious about today's procedure but denies any further questions related to those details. I did take the opportunity to review some of the basic details about his recovery time and clarified expectations for the procedure. In the absence of any further questions we will plan to proceed to the operating room for scheduled laparoscopic cholecystectomy with intraoperative cholangiography.
--- NOTE | 2023-10-14 11:35 | RAD_ITS ---
STUDY: INTRAOPERATIVE CHOLANGIOGRAM. REASON FOR EXAM: Male, 38 years old. Laparoscopic cholecystectomy. FLUOROSCOPY TIME (if supplied): ( 20 seconds ) minutes/seconds. 7.78 mGy TECHNIQUE: An intraoperative Cholangiogram was performed by the surgeon. Imaging was provided. COMPARISON: None. FINDINGS: The visualized intra and extrahepatic biliary ducts are unremarkable. No intraluminal filling defect is seen. There is free flow of contrast into the duodenum. RAD/Cholangiogram/ O R,Initial IMPRESSION: Unremarkable intraoperative cholangiogram. Electronically Signed: Roge Alvarado MD at 13:49 EST ,
[2023-10-14] MEDS: Bupivacaine Mpf 0.5% 30 ML VIAL (12:48)
--- NOTE | 2023-10-14 13:01 | PCM.OPRPT ---
Report of Operation Date of Procedure: 10/14/23 Pre-Operative Diagnosis: Cholecystitis Post-Operative Diagnosis: Same Surgery/Procedure Performed:: Laparoscopic cholecystectomy with intraoperative cholangiogram Description of Surgical Findings:: ? Gallbladder shrouded from the mid part of the body proximally with omental adhesions ? Anterior and posterior cystic arteries with H branching ? Cholangiogram showing normal duct dimensions with free flow of contrast through the common bile duct and ampulla into the small bowel as well as reflux into the common hepatic duct system Surgeon: Nestor Cornejo typewriter repairer: Marely Ibarra Type of Anesthesia: General/Supplemental Anesthesiologist: Frank Abreu Estimated Blood Loss (mL): 50 Description of Procedure: After proper identification in the preoperative holding area the patient was brought to the operating room where he was positioned supine on the operating room table. Preoperatively SCDs were placed and antibiotics were administered. General anesthesia was then induced. Patient's abdomen was prepped and draped in usual sterile fashion. A formal timeout was conducted to confirm both patient and the procedure. Procedure was begun with a supraumbilical incision which was extended deeply down to the level of the fascia. The fascia was elevated and incised, as well as the peritoneum. A finger sweep was performed to ensure there were no underlying adhesions and a 12 mm balloon trocar was inserted. Pneumoperitoneum was established at 15 mmHg. Three 5mm additional trocars were placed in the epigastrium (this was later upsized to a 12 mm port) and in the right upper quadrant. Inspection of the peritoneum revealed no inadvertent injury to the viscera below. The gallbladder was visualized with a mild to moderate degree of inflammation and partially surrounded by the omentum from the mid body approximately. The gallbladder fundus was then grasped and elevated cephalad. Then, using careful dissection the peritoneum was opened and the structures of the hepatocystic triangle were delineated. Once the critical view of safety was obtained, the cystic duct was singly clipped and partially divided with a ductotomy. Using an Bowden [place] clamp, a cholangiocatheter was fed into the proximal segment of the cystic duct and clamped into place. Under fluoroscopy a cholangiogram was then obtained showing a standard length cystic duct flowing into a common bile duct with unobstructed antegrade flow of contrast into the duodenum. There was also retrograde flow through the common hepatic duct into the right and left hepatic ducts. Satisfied with this result, the cholangiocatheter was withdrawn and the proximal cystic duct was sealed with clips and the cystic duct was completely transected. To facilitate this ligation of the duct, I had to upsize patient's epigastric/subxiphoid port site to a 12 mm port and use the larger clip produce production team member given the greater diameter on the patient's cystic duct. The same process was used for both the anterior and posterior cystic arteries. The gallbladder was then removed from the gallbladder fossa with the use of electrocautery. An inadvertent rent was made in the gallbladder fundus as the gallbladder was being removed from the fossa at its final extent resulting in some local spillage of bile that was promptly suctioned free the peritoneum using our suction budget counselor device. The gallbladder was placed in an Endo Catch bag and removed from the peritoneum. Morison's pouch was irrigated and the effluent was suctioned free of the peritoneum. Hemostasis was confirmed as well as clip placement. Pneumoperitoneum was evacuated and the fascia of the 12 mm port sites was closed with #1Vicryl in a [id number] fashion. A total of 30 mL of anesthetic was injected at the port sites for postoperative pain control. The skin of each port site was then closed in subcuticular fashion using 4-0 Monocryl. Steri-Strips and bandages were applied as dressings. Patient tolerated the procedure well without any apparent complications. On emergence from their anesthetic the patient was taken to PACU for ongoing recovery. Grafts/Implants Used: None Complications None Admit VTE Documentation VTE Mechan Device Prophylaxis: SCD's Procedures Digestive 40xxx-49xxx: 09742 Laparo cholecystectomy/graph
--- NOTE | 2023-10-14 13:07 | DCINST_ITS ---
Discharge Instructions Diet Discharge Diet: No restrictions Activity Discharge Activity: May Not Drive (No driving while using narcotic pain medication) and May Shower (Postoperative day 1) May shower in (days): 2 Ice area for (Minutes): 20 Lifting Restrictions: No lifting greater than 15 pounds for 2 weeks after surgery Dressing / Incision Call your doctor if your incision/area has: Continuous Slow Oozing, Increased Pain/ Swelling, Increased Redness, Foul Smelling Discharge and Swelling at the incision site Call your doctor if you observe: Fever of 101 or Higher Remove Dressing in: 2 days (Please leave Steri-Strips intact until they fall off spontaneously or are taken off at your follow-up visit) Cleanse incision/area with: Soap & Water Follow Up Care Please Follow Up With: Nestor Cornejo MD When: 7-10days postop Test Results: Test results from this visit will be discussed in further detail at your follow- up appointment, if applicable. Discharge Plan Admission Primary Reason for Your Visit: Gallbladder removal Attending Provider: Nestor Cornejo Primary Care Provider: Franki Freeman Chi Discharge Orders/Prescriptions Prescriptions: New oxycodone 5 mg tablet 5 mg PO Q6H PRN (Reason: pain) 3 Days Qty: 14 0RF Continued primidone 50 mg tablet 50 mg PO TID citalopram 10 mg tablet 10 mg PO DAILY Patient Comments: TAKE 1 TABLET BY MOUTH ONCE DAILY esomeprazole magnesium [Nexium] 20 mg capsule,delayed release(DR/EC) 20 mg PO DAILY PRN (Reason: indigestion) Referrals / Follow Up: Franki Freeman Chi, MD [Primary Care Provider] - Disposition Disposition (needs filled in before D/C Order can be placed): Home, Self Care
== END 2023-10-14 15:44 | disposition home or self-care (01) ==
LOC: SDC 09:24 → AC 09:25
PROVIDERS: PCP Family Medicine Geriatric Medicine; Referring Provider Family Medicine Geriatric Medicine; Visit Provider Surgery
PROC: (CPT 47610; principal; 2023-10-14 10:40)
DX: K80.12 Calculus of gallbladder with acute and chronic cholecystitis without obstruction (principal); K66.0 Peritoneal adhesions (postprocedural) (postinfection); K21.9 Gastro-esophageal reflux disease without esophagitis; F32.A Depression, unspecified; F17.210 Nicotine dependence, cigarettes, uncomplicated; E66.9 Obesity, unspecified; Z68.32 Body mass index [BMI] 32.0-32.9, adult; Z79.899 Other long term (current) drug therapy
CPT/HCPCS: 47563; 00790; 74300; 76000; 88304; 93005; J7120; J2405

== ENCOUNTER → 2023-11-07 | Outpatient (CLI) | payer MEDICAID, SELFPAY ==
[2023-11-07 17:09] LABS: Absolute Lymphocyte Count 2.66 X10^3/uL (0.83-4.51); Absolute Neutrophil Count 6.2 X10^3/uL (2.0-7.7); Basophil# 0.08 X10^3/uL; Basophil% 0.8 % (0-1); Eosinophil# 0.06 X10^3/uL; Eosinophils% 0.6 % (0-5); Hematocrit 47.7 % (40-54); Lymphocyte # 2.66 X10^3/ul (0.83-4.51); Lymphocyte % 27.1 % (19-41); Mean Corp Hgb Conc 33.5 g/dL (32-36); Mean Corpuscular Hgb 30.1 pg (27.0-32.0); Mean Corpuscular Volume 89.7 fL (80-94); Mean Platelet Vol. 10.2 fl (6.2-12.0); Monocyte# 0.75 X10^3/uL; Monocyte% 7.6 % (0-10); NRBC Flagged by Analyzer 0 % (0-5); Neutrophil # 6.23 X10^3/uL (2.7-7.7); Neutrophil % 63.4 % (47-70); Platelet Count 225 K/mm3 (150-450); RBC Distribution Width CV 12.9 % (11.6-14.6); RBC Distribution Width SD 42.4 fl (35.1-43.9); Red Blood Count 5.32 M/mm3 (4.6-6.2); White Blood Count 9.8 K/mm3 (4.4-11.0)
[2023-11-07 17:37] LABS: ALB/GLOB Ratio 1.3 RATIO (0.9-2.4); AST(SGOT) 27 U/L (15-37); Alanine Aminotransfer ALT/SGPT 34 U/L (16-61); Albumin, Serum 4.3 g/dL (3.2-5.0); Alkaline Phosphatase 89 U/L (45-117); Anion Gap 4 (5-15); BUN 16 mg/dL (7-18); BUN/Creat Ratio 14.2 RATIO (10-20); Calcium,Total 9.1 mg/dL (8.5-10.1); Chloride 110 mmol/L (98-107); Cholesterol 137 mg/dL (200); Creatinine, Serum 1.13 mg/dL (0.70-1.30); EST Glomerular Filtration Rate 76 mL/min (>60); Est Glom Filt Rate - Afr Amer 92 mL/min (>60); Globulin 3.3 g/dL (2.2-4.2); Glucose 92 mg/dL (74-106); High Density Lipoprotein 57 mg/dL; Potassium 3.7 mmol/L (3.5-5.1); Protein, Total 7.6 g/dL (6.4-8.2); Sodium Level 140 mmol/L (136-145); Triglycerides 38 mg/dL; Very Low Density Lipoprotein 8 mg/dL (5-40)
== END | disposition home or self-care (01) ==
LOC: POLAB3 15:52
PROVIDERS: PCP Family Medicine Geriatric Medicine; Visit Provider Family Medicine Geriatric Medicine
DX: R53.83 Other fatigue (principal); E78.5 Hyperlipidemia, unspecified
CPT/HCPCS: 36415; 80053; 80061; 84443; 85025

== ENCOUNTER → 2023-12-05 | Outpatient (CLI) | payer MEDICAID, SELFPAY ==
[2023-12-05 18:08] LABS: Color, Urine Yellow (Yellow); Glucose, Dipstick Normal (Normal); Ketone-Dipstick Negative (Negative); Leukocyte Esterase-Dipstick Negative /ul (Negative); Nitrite-Dipstick Negative (Negative); Occult Blood-Urine Negative /ul (Negative); Protein-Dipstick Negative (Negative); Urine Bilirubin Dipstick Negative (Negative); Urine Clarity Sl. Cloudy (Clear); Urine Urobilinogen Normal (Normal); Urine pH 6.5 (5.0 - 8.0)
== END | disposition home or self-care (01) ==
LOC: LABSPEC 17:05
PROVIDERS: PCP Family Medicine Geriatric Medicine; Visit Provider Family Medicine Geriatric Medicine
DX: N39.0 Urinary tract infection, site not specified (principal)
CPT/HCPCS: 36415; 81002; 87086

== ENCOUNTER 2024-03-05 18:06 | Emergency (ER) | payer MEDICAID, SELFPAY ==
[2024-03-05 18:07] VITALS: BP 154/88; PULSE 85; RESP 14; TEMP 37.2; O2SAT 98; BMI 31.8
--- NOTE | 2024-03-05 19:45 | CT_ITS ---
STUDY: CT ABDOMEN AND PELVIS WITH CONTRAST REASON FOR EXAM: Male, 38 years old. abdominal pain RADIATION DOSAGE (If Supplied By Facility): CTDIvol = ( 16.78 ) mGy, DLP = ( 1051.73 ) mGycm TECHNIQUE: Transaxial images were obtained from the dome of the diaphragm to the symphysis pubis without oral contrast. IV 100mL Isovue-370 was administered. Sagittal and coronal images were reconstructed. Individualized dose optimization techniques were used for this CT. COMPARISON: September 04, 2023 FINDINGS: The visualized lung bases are unremarkable. The visualized portions of the heart are within normal limits. Normal liver. Gallbladder has been removed surgically Normal spleen. Normal pancreas. Normal bilateral adrenal glands. Normal right kidney. Normal left kidney. Nonspecific gastric distention with retained secretions.. Normal small intestine. Normal colon. The appendix is visualized and appears normal. Normal abdominal aorta. Normal inferior vena cava. Normal retroperitoneum. Normal urinary bladder. Normal abdominal wall. Lumbar spine demonstrates degenerative changes CT/Abdomen/Pelvis W IV Cont ONLY IMPRESSION: [Diffusely distended stomach with secretions possibly due to gastritis. No evidence for small bowel obstruction or other acute abnormality. Status post cholecystectomy Electronically Signed: Irineo Tomlinson MD at 21:37 EDT ,
--- NOTE | 2024-03-05 19:47 | ED.VIS.GI ---
HPI HPI - GI History of Present Illness Chief Complaint: Abd Pain Narrative Narrative: 38-year-old male presenting with abdominal pain. He states it is 9.5 out of 10. Patient states started in the left lower quadrant and migrated upward and now is everywhere. Patient denies fever, chills, nausea, vomiting, diarrhea, constipation. Patient states that he has not had any black or bloody stools. Patient has history of cholecystectomy. No history of bowel obstruction. PFSH PFS Medical History Wears glasses Migraine headache Gastric reflux Abdominal pain Cholelithiasis Biliary dyskinesia Near syncope Fatty liver Smoker Contusion of right hand, initial encounter Depression Home Medications ?Medication ?Instructions ?Recorded ?Last Taken ?Type citalopram 10 mg tablet 10 mg PO DAILY 02/09/21 10/10/23 History primidone 50 mg tablet 50 mg PO TID 09/29/23 10/10/23 History esomeprazole magnesium 20 mg 20 mg PO DAILY PRN indigestion 10/07/23 10/10/23 History capsule,delayed release (Nexium) Allergy/AdvReac Type Severity Reaction Status Date / Time adhesive tape Allergy Intermediate Rash Verified 03/05/24 18:07 Surgical History Hx of bilateral cataract extraction History of nasal surgery Social History household members: family Smoking Status: Current every day smoker tobacco type: cigarettes alcohol intake: never substance use type: does not use ROS ROS ED Constitutional Constitutional ED: Denies chills, fever(s) or sweats Eyes Eyes: Denies blurry vision or change in vision ENT ENT ED: Denies ear pain or sore throat Cardiovascular Cardiovascular: Denies chest pain, palpitations or racing heartbeat Respiratory/Chest Respiratory/Chest: Denies cough, dyspnea or sputum Gastrointestinal Gastrointestinal: Reports abdominal pain; Denies constipation, diarrhea, nausea or vomiting Genitourinary Genitourinary ED: Denies dysuria, hematuria or urinary frequency Musculoskeletal Musculoskeletal: Denies arthralgias, myalgias or neck pain Integumentary Denies abscess, Abrasions or rash Neurologic Neurologic: Denies headache(s), paresthesias or weakness Psychiatric Psychiatric: Denies anxiety, depression, suicidal ideation or suicidal thoughts Endocrine Endocrinology: Denies polydipsia or polyuria EXAM Physical Exam Const Vital Signs: 03/05/24 18:07 03/05/24 20:07 03/05/24 22:00 Temperature 99 F Temperature Source Temporal Pulse Rate 85 74 64 Respiratory Rate 14 14 18 Blood Pressure 154/88 H 145/76 H 128/89 H Blood Pressure Mean 110 99 102 Pulse Ox 98 98 97 Oxygen Delivery Method Room Air Room Air Room Air Positive well nourished General Appearance ED: NAD; Negative for pallor HEENT Reports moist mucous membranes normocephalic Eyes PERRL and EOMs intact bilaterally Resp normal respiratory effort and clear to auscultation bilaterally Cardio regular rate and regular rhythm GI Palpation: tender LLQ and periumbilical Back/Spine no CVA tenderness Neuro CN's II-XII intact bilaterally Sensorium / Orientation: alert Motor Exam: strength 5/5 throughout Psych mental status grossly normal Skin General Skin Exam: Negative for jaundice or pallor MDM MDM MDM Narrative Medical decision making narrative: 38-year-old male presenting with abdominal pain. Patient presenting with right flank pain. Differential includes colitis, diverticulitis, gastritis, pancreatitis, constipation, UTI, pyelonephritis, renal calculi, ureteral calculi, bowel obstruction, malignancy, dehydration, electrolyte abnormalities. CBC will be obtained to assess white blood cell count, hemoglobin, platelets. CMP to assess renal function, electrolytes, liver function, glucose. Lipase to assess for pancreatitis. Urinalysis to assess for UTI. Patient medicated morphine, Zofran, IV fluids. CBC shows white blood cell count 10.9. Hemoglobin 15.6. Platelets are 209. Renal function electrolytes within normal limits. LFTs are normal. Lipase is negative. CT of the abdomen pelvis provide radiologist show concern for gastritis. No other acute findings found. Patient states he has not been taking his omeprazole and he did have pizza this week which might of started problem. He was given a GI cocktail which resolved his pain. I recommended he start back on his omeprazole and watch his diet. He understanding. Impression: 1. Gastritis Lab Data Attestation: I reviewed the patient's lab results. Labs: Laboratory Results - last 24 hr 03/05/24 20:10 WBC 10.9 RBC 5.20 Hgb 15.6 Hct 47.0 MCV 90.4 MCH 30.0 MCHC 33.2 RDW Std Deviation 43.1 RDW Coeff of Eleonora 13.1 Plt Count 209 MPV 9.8 Immature Gran % (Auto) 0.300 Neut % (Auto) 67.1 Lymph % (Auto) 23.1 Sharp % (Auto) 7.7 Eos % (Auto) 1.1 Baso % (Auto) 0.7 Absolute Neuts (auto) 7.3 Absolute Lymphs (auto) 2.52 Nucleated RBC % 0 Sodium 142 Potassium 3.5 Chloride 109 H Carbon Dioxide 29.0 Anion Gap 4 L BUN 11 Creatinine 1.00 Estim Creat Clear Calc 120.25 Est GFR (MDRD) Af Amer 106 Est GFR (MDRD) Non-Af 88 BUN/Creatinine Ratio 11.0 Glucose 101 Calcium 9.0 Total Bilirubin 0.30 AST 12 L ALT 26 Alkaline Phosphatase 89 Total Protein 7.3 Albumin 3.9 Globulin 3.4 Albumin/Globulin Ratio 1.1 Lipase 26 Radiography Diagnostic Testing: Clinical Impression(s) from Imaging Studies Abdomen/Pelvis CT 03/05/24 19:45 IMPRESSION: [Diffusely distended stomach with secretions possibly due to gastritis. No evidence for small bowel obstruction or other acute abnormality. Status post cholecystectomy Electronically Signed: Irineo Tomlinson MD at 21:37 EDT Reading Location ID and State: [facility] / [place] Tel , Service support , Discharge Plan Triage Chief Complaint: Abd Pain ED Provider: Caesar Pelayo Dx/Rx/DC Orders Instructions: ED Gastritis (Adult) Prescriptions: No Action primidone 50 mg tablet 50 mg PO TID citalopram 10 mg tablet 10 mg PO DAILY Patient Comments: TAKE 1 TABLET BY MOUTH ONCE DAILY esomeprazole magnesium [Nexium] 20 mg capsule,delayed release(DR/EC) 20 mg PO DAILY PRN (Reason: indigestion) Primary Care Provider: Franki Freeman Chi Referrals: Franki Freeman Chi, MD [Primary Care Provider] - Print Language: Polish Disposition Disposition: Home, Self Care
[2024-03-05 20:07] VITALS: BP 145/76; PULSE 74; RESP 14; O2SAT 98
[2024-03-05 20:24] LABS: Absolute Lymphocyte Count 2.52 X10^3/uL (0.83-4.51); Absolute Neutrophil Count 7.3 X10^3/uL (2.0-7.7); Basophil# 0.08 X10^3/uL; Basophil% 0.7 % (0-1); Eosinophil# 0.12 X10^3/uL; Eosinophils% 1.1 % (0-5); Hemoglobin 15.6 g/dL (13.0-16.5); Lymphocyte # 2.52 X10^3/ul (0.83-4.51); Lymphocyte % 23.1 % (19-41); Mean Corp Hgb Conc 33.2 g/dL (32-36); Mean Corpuscular Volume 90.4 fL (80-94); Mean Platelet Vol. 9.8 fl (6.2-12.0); Monocyte# 0.84 X10^3/uL; Monocyte% 7.7 % (0-10); NRBC Flagged by Analyzer 0 % (0-5); Neutrophil % 67.1 % (47-70); Platelet Count 209 K/mm3 (150-450); RBC Distribution Width CV 13.1 % (11.6-14.6); RBC Distribution Width SD 43.1 fl (35.1-43.9); White Blood Count 10.9 K/mm3 (4.4-11.0)
[2024-03-05] MEDS: 0.9% Normal Saline (1000mL) 1,000 ML 999 ML IV (20:24)
[2024-03-05] MEDS: Morphine 4 MG/ML Syringe IV (20:25)
[2024-03-05] MEDS: Ondansetron 4 MG/2 ML Vial IV (20:25)
[2024-03-05 20:46] LABS: ALB/GLOB Ratio 1.1 RATIO (0.9-2.4); AST(SGOT) 12 U/L (15-37); Alanine Aminotransfer ALT/SGPT 26 U/L (16-61); Albumin, Serum 3.9 g/dL (3.2-5.0); Alkaline Phosphatase 89 U/L (45-117); Anion Gap 4 (5-15); BUN 11 mg/dL (7-18); Chloride 109 mmol/L (98-107); EST Glomerular Filtration Rate 88 mL/min (>60); Est Glom Filt Rate - Afr Amer 106 mL/min (>60); Estimated Creatinine Clearance 120.25 ml/min; Globulin 3.4 g/dL (2.2-4.2); Glucose 101 mg/dL (74-106); Lipase 26 U/L (13-75); Potassium 3.5 mmol/L (3.5-5.1); Protein, Total 7.3 g/dL (6.4-8.2); Sodium Level 142 mmol/L (136-145)
[2024-03-05 22:00] VITALS: BP 128/89; PULSE 64; RESP 18; O2SAT 97
[2024-03-05] MEDS: Mag Hydrox/Al Hydrox/Simeth 30 ML UDC PO (22:16)
[2024-03-05] MEDS: Lidocaine 2% Viscous15 ML UDC 15 ML PO (22:16)
[2024-03-05 23:06] VITALS: BP 132/80; PULSE 74; RESP 18; TEMP 36.1; O2SAT 99
== END 2024-03-05 23:07 | disposition home or self-care (01) ==
PROVIDERS: Emergency Provider Student in an Organized Health Care Education/Training Program; PCP Family Medicine Geriatric Medicine; Visit Provider Student in an Organized Health Care Education/Training Program
DX: K29.70 Gastritis, unspecified, without bleeding (principal); F17.210 Nicotine dependence, cigarettes, uncomplicated
CPT/HCPCS: 74177; 80053; 83690; 85025; 96361; 96374; 96375; 99283; Q9967; J2405

== ENCOUNTER → 2024-05-03 | Outpatient (CLI) | payer MEDICAID, SELFPAY ==
[2024-05-03 16:10] LABS: Absolute Lymphocyte Count 2.17 X10^3/uL (0.83-4.51); Absolute Neutrophil Count 5.6 X10^3/uL (2.0-7.7); Basophil# 0.04 X10^3/uL; Basophil% 0.5 % (0-1); Eosinophil# 0.04 X10^3/uL; Eosinophils% 0.5 % (0-5); Hematocrit 48.2 % (40-54); Hemoglobin 16.3 g/dL (13.0-16.5); Lymphocyte # 2.17 X10^3/ul (0.83-4.51); Lymphocyte % 25.5 % (19-41); Mean Corp Hgb Conc 33.8 g/dL (32-36); Mean Corpuscular Volume 88.6 fL (80-94); Mean Platelet Vol. 9.3 fl (6.2-12.0); Monocyte# 0.61 X10^3/uL; Monocyte% 7.2 % (0-10); NRBC Flagged by Analyzer 0 % (0-5); Neutrophil # 5.61 X10^3/uL (2.7-7.7); Neutrophil % 65.9 % (47-70); Platelet Count 218 K/mm3 (150-450); RBC Distribution Width CV 12.7 % (11.6-14.6); RBC Distribution Width SD 41.4 fl (35.1-43.9); Red Blood Count 5.44 M/mm3 (4.6-6.2); White Blood Count 8.5 K/mm3 (4.4-11.0)
[2024-05-03 17:12] LABS: ALB/GLOB Ratio 1.2 RATIO (0.9-2.4); AST(SGOT) 22 U/L (15-37); Alanine Aminotransfer ALT/SGPT 24 U/L (16-61); Albumin, Serum 4.4 g/dL (3.2-5.0); Alkaline Phosphatase 87 U/L (45-117); Anion Gap 7 (5-15); BUN 18 mg/dL (7-18); BUN/Creat Ratio 17.6 RATIO (10-20); Calcium,Total 9.1 mg/dL (8.5-10.1); Chloride 109 mmol/L (98-107); Cholesterol 145 mg/dL (200); Creatinine, Serum 1.02 mg/dL (0.70-1.30); EST Glomerular Filtration Rate 86 mL/min (>60); Est Glom Filt Rate - Afr Amer 103 mL/min (>60); Globulin 3.6 g/dL (2.2-4.2); Glucose 92 mg/dL (74-106); High Density Lipoprotein 57 mg/dL; Potassium 3.7 mmol/L (3.5-5.1); Sodium Level 140 mmol/L (136-145); Thyroid Stim Hormone (TSH) 0.925 uIU/mL (0.358-3.740); Triglycerides 45 mg/dL; Very Low Density Lipoprotein 9 mg/dL (5-40)
== END | disposition home or self-care (01) ==
LOC: POLAB3 15:49
PROVIDERS: PCP Family Medicine Geriatric Medicine; Visit Provider Family Medicine Geriatric Medicine
DX: E78.5 Hyperlipidemia, unspecified (principal); R53.83 Other fatigue
CPT/HCPCS: 36415; 80053; 80061; 84443; 85025

== ENCOUNTER → 2024-09-13 | Outpatient (CLI) | payer MEDICAID, SELFPAY | END | disposition home or self-care (01) | LOC: PSN 08:51 | PROVIDERS: PCP Family Medicine Geriatric Medicine; Referring Provider Family Medicine Geriatric Medicine; Visit Provider Family Medicine Geriatric Medicine | DX: R68.83 Chills (without fever) (principal) | CPT/HCPCS: 87631 ==

== ENCOUNTER → 2024-11-02 | Outpatient (CLI) | payer MEDICAID, SELFPAY ==
--- NOTE | 2024-11-02 11:50 | RAD_ITS ---
PROCEDURE: HIP, UNI W/ PELVIS 2-3 VIEWS REASON FOR EXAM: Left-sided sciatica, left hip pain TECHNIQUE: AP view of the pelvis and AP and frog-leg lateral views of the left hip COMPARISON: None. FINDINGS: No fracture or dislocation. The joint spaces appear within limits. Symmetric appearing SI joints and pubic symphysis appear within limits. RAD/HIP, UNI W/ Pelvis 2-3 Views IMPRESSION: Study appears within limits. Reading Location: [id number]
--- NOTE | 2024-11-02 11:50 | RAD_ITS ---
PROCEDURE: L/S SPINE MIN 4 VIEWS REASON FOR EXAM: Left sciatica, left hip pain TECHNIQUE: AP, lateral and oblique views of the lumbar spine COMPARISON: None. FINDINGS: Normal vertebral heights. No evidence of fracture. Mild multilevel disc space narrowing. Mild facet arthropathy. Normal alignment. No spondylolisthesis. RAD/L/S Spine Min 4 Views IMPRESSION: Multilevel degenerative changes in the lumbar spine Reading Location: [facility]
== END | disposition home or self-care (01) ==
LOC: RAD 11:42
PROVIDERS: PCP Family Medicine Geriatric Medicine; Referring Provider Family Medicine Geriatric Medicine; Visit Provider Family Medicine Geriatric Medicine
DX: M54.32 Sciatica, left side (principal); M25.552 Pain in left hip
CPT/HCPCS: 72110; 73502

== ENCOUNTER → 2025-01-25 | Outpatient (CLI) | payer MEDICAID, SELFPAY ==
[2025-01-25 12:53] LABS: Absolute Lymphocyte Count 2.15 X10^3/uL (0.83-4.51); Absolute Neutrophil Count 5.5 X10^3/uL (2.0-7.7); Basophil# 0.05 X10^3/uL; Basophil% 0.6 % (0-1); Eosinophil# 0.09 X10^3/uL; Eosinophils% 1.1 % (0-5); Hematocrit 47.3 % (40-54); Hemoglobin 16.1 g/dL (13.0-16.5); Lymphocyte # 2.15 X10^3/ul (0.83-4.51); Lymphocyte % 25.1 % (19-41); Mean Platelet Vol. 9.9 fl (6.2-12.0); Monocyte# 0.74 X10^3/uL; Monocyte% 8.6 % (0-10); NRBC Flagged by Analyzer 0 % (0-5); Neutrophil # 5.51 X10^3/uL (2.7-7.7); Neutrophil % 64.2 % (47-70); Platelet Count 228 K/mm3 (150-450); RBC Distribution Width CV 13.1 % (11.6-14.6); RBC Distribution Width SD 44.4 fl (35.1-43.9); White Blood Count 8.6 K/mm3 (4.4-11.0)
--- NOTE | 2025-01-25 12:55 | RAD_ITS ---
PROCEDURE: SHOULDER MIN 2 VIEWS 01/25/2025 REASON FOR EXAM: LEFT SHOULDER PAIN TECHNIQUE: Four views left shoulder COMPARISON: None available FINDINGS: No fracture or dislocation. The joint spaces appear within limits. No osseous lesion identified. The visualized left lung appears clear. RAD/Shoulder min 2 Views IMPRESSION: Study appears within limits. Reading Location: [id number]
[2025-01-25 14:11] LABS: ALB/GLOB Ratio 1.6 RATIO (0.9-2.4); AST(SGOT) 27 U/L (<=37); Alanine Aminotransfer ALT/SGPT 28 U/L (<=46); Albumin, Serum 4.6 g/dL (3.5-5.0); Alkaline Phosphatase 87 U/L (40-129); Anion Gap 9 (5-15); BUN 15 mg/dL (4-19); BUN/Creat Ratio 12.6 RATIO (10-20); Calcium,Total 9.1 mg/dL (7.6-11.0); Carbon Dioxide 26.4 mmol/L (21.0-32.0); Chloride 105 mmol/L (98-108); Cholesterol 147 mg/dL (<=200); Creatinine, Serum 1.15 mg/dL (0.70-1.20); EST Glomerular Filtration Rate 82 (>60); Globulin 2.9 g/dL (2.2-4.2); Glucose 87 mg/dL (70-99); High Density Lipoprotein 48 mg/dL; Low Density Lipoprotein Calc. 83 mg/dL; Potassium 4.4 mmol/L (3.3-5.1); Protein, Total 7.5 g/dL (5.9-8.4); Sodium Level 140 mmol/L (133-145); Thyroid Stim Hormone (TSH) 0.935 uIU/mL (0.300-4.200); Total Bilirubin 0.61 mg/dL (0.00-1.30); Triglycerides 79 mg/dL; Very Low Density Lipoprotein 16 mg/dL (5-40); cholesterol:hdl ratio screen 3.04
== END | disposition home or self-care (01) ==
LOC: LAB 12:12
PROVIDERS: PCP Family Medicine Geriatric Medicine; Referring Provider Family Medicine Geriatric Medicine; Visit Provider Family Medicine Geriatric Medicine
DX: E78.5 Hyperlipidemia, unspecified (principal); R53.83 Other fatigue; M25.512 Pain in left shoulder
CPT/HCPCS: 36415; 73030; 80053; 80061; 84443; 85025